=== PATIENT | male | born 1940 | race Two or more races ===

== ENCOUNTER 2016-11-02 18:59 | Inpatient (IN) | payer MEDICAID ==
[~2016-11-02] VITALS: Ht 172.7 cm; Wt 51.7 kg
[2016-11-02] MEDS ORDERED: IV NS 0.9% 1,000 ML ONE ×3 (19:20→22:53)
[2016-11-02] MEDS ORDERED: PANTOPRAZOLE 40 MG VIAL ONE (19:20)
[2016-11-02] MEDS ORDERED: IV SET PRIMARY 1 EA INFUS.SET MC ONE ×2 (19:20→20:25)
--- NOTE | 2016-11-02 19:24 | NUR ---
PT REC'D ON SHILEY 8 TRACH ON [facility] VENT ON NOTED SETTINGS FROM TRANSPORT RT. PT IS AWAKE AND ALERT. TRACH IS MIDLINE AND IN PLACE. VENT IS PLUGGED IN RED OUTLET AND ALARMS ARE SET AND AUDIBLE. ANJELU BAG BEDSIDE. WILL CONTINUE TO MONITOR. Addendum: 11/02/16 at 1926 by DAVID HENNESSY RT Amended: Links added.
[2016-11-02] MEDS ORDERED: PANTOPRAZOLE 40 MG VIAL IV ONE (19:30)
[2016-11-02] MEDS ORDERED: IV NS 0.9% 1,000 ML BAG IV ONE (19:30)
[2016-11-02 19:31] LABS: BASOPHILS % (AUTO) 0.3 % (0.0-2.0); EOSINOPHILS # (AUTO) 0.2 /CMM (0.0-0.7); EOSINOPHILS % (AUTO) 1.3 % (0.0-6.0); HEMATOCRIT 22 % (39-51); HEMOGLOBIN 7.3 g/dL (13.5-17.5); LYMPHOCYTES # (AUTO) 1.6 /CMM (0.8-4.8); LYMPHOCYTES % (AUTO) 9.6 % (20.0-44.0); MEAN CORPUSCULAR HEMOGLOBIN 29 PG (26.0-33.0); MEAN CORPUSCULAR HGB CONC 33 g/dl (31.0-36.0); MEAN CORPUSCULAR VOLUME 87 fL (80-96); MONOCYTES # (AUTO) 0.8 /CMM (0.1-1.30); MONOCYTES % (AUTO) 4.8 % (2.0-12.0); NEUTROPHILS # (AUTO) 13.8 /CMM (1.8-8.9); PLATELET COUNT (AUTO) 582 /CMM (150-450); RDW COEFFICIENT OF VARIATION 15.3 (11.5-15.0); RED BLOOD CELL COUNT(AUTO) 2.56 MIL/uL (4.5-6.0); WHITE BLOOD COUNT (AUTO) 16.4 K/uL (4.3-11.0)
--- NOTE | 2016-11-02 19:47 | NUR ---
SHAI, EMT IS AT THE BEDSIDE FOR EKG.
[2016-11-02 19:49] LABS: INR 1.13 (0.87-1.13); PROTHROMBIN TIME 12.2 SECS (9.5-12.7)
[2016-11-02 19:51] LABS: ALANINE AMINOTRANSFERASE 45 U/L (12-78); ALBUMIN 1.7 g/dL (3.4-5.0); ALKALINE PHOSPHATASE 131 U/L (46-116); ASPARTATE AMINOTRANSFERASE 25 U/L (15-37); BILIRUBIN,DIRECT 0.1 mg/dL (0.0-0.2); BILIRUBIN,TOTAL 0.3 mg/dL (0.2-1.0); CALCIUM, SERUM 8.3 mg/dL (8.5-10.1); CHLORIDE 96 mmol/L (98-107); CREATININE 0.4 mg/dL (0.6-1.3); GLUCOSE 114 mg/dL (74-106); POTASSIUM 4.6 mmol/L (3.5-5.1); SODIUM SERUM 134 mmol/L (136-145); TOTAL PROTEIN, SERUM 6.5 g/dL (6.4-8.2); UREA NITROGEN, BLOOD 17 mg/dL (7-18)
[2016-11-02 19:52] LABS: CARBON DIOXIDE 43 mmol/L (21-32)
[2016-11-02 19:53] LABS: TROPONIN I < 0.017 ng/mL (0.00-0.056)
[2016-11-02 20:13] LABS: APPEARANCE,URINE Slightly Cloudy (CLEAR); BILIRUBIN,URINE Negative (NEGATIVE); BLOOD, URINE Moderate Ery/uL (NEGATIVE); COLOR,URINE Yellow (YELLOW); KETONES,URINE Negative (NEGATIVE); LEUKOCYTE ESTERASE ,URINE Large (NEGATIVE); NITRITE, URINE Positive (NEGATIVE); PROTEIN,URINE 30 mg/dl (NEGATIVE); UGLUCOSE Negative (NEGATIVE)
[2016-11-02 20:23] LABS: ADD URINE CULTURE YES; BACTERIA,URINE Moderate /HPF (None Seen); RBC,URINE 15-25 /HPF (0-2); WBC,URINE TOO NUMEROUS TO COUN /HPF (0-3)
[2016-11-02] MEDS ORDERED: CEFTRIAXONE 1GM BAG (ER ONLY) 50 ML IV ONE (20:25)
[2016-11-02 20:26] LABS: SQUAMOUS EPITHELIAL CELL,UR None Seen /HPF (None Seen)
[2016-11-02] MEDS ORDERED: CEFTRIAXONE 1 G in IV D5W 50 ML IV ONE (20:30)
--- NOTE | 2016-11-02 20:32 | NUR ---
PAGED DANTE MENA
--- NOTE | 2016-11-02 20:40 | NUR ---
ABG DONE. FIO2 DECREASED TO 40%.
--- NOTE | 2016-11-02 20:43 | NUR ---
PT BECAME TACHYPNIC AND RT WAS AT THE BEDSIDE. PT'S FIO2 PLACED AT 100% TO ALLOW PT TO ADJUST.
--- NOTE | 2016-11-02 20:54 | NUR ---
RT IS AT THE BEDSIDE ADJUSTING THE PT'S FIO2.
--- NOTE | 2016-11-02 20:55 | NUR ---
PT AT 50% FIO2.
[2016-11-02 20:57] VITALS: BP 104/67
--- NOTE | 2016-11-02 20:57 | NUR ---
A/C RATE INCREASED TO 14, PER DR. JACOBSEN.
[2016-11-02 20:58] LABS: ABG BASE EXCESS 10.4 mmol/L; ABG OXYGEN SATURATION 91.8 % (92.0-98.5); ABG PCO2 62.9 mmHg (35.0-45.0); ABG PH 7.383 (7.350-7.450); ABG PO2 73.5 mmHg (75.0-100.0); ABG TOTAL HEMOGLOBIN 7.2 G/dL (13.5-18.0); AaDO2 139.4 mmHg; COHb 1.7 % (0.5-1.5); MetHb 0.5 % (0.0-1.5); O2Hb 89.8 % (94.0-97.0); SITE, ABG Right Radial; VENT MODE, BG ac 12 450 40% +5
[2016-11-02] MEDS ORDERED: IV NS 0.9% 500 ML BAG IV ONE (21:00)
--- NOTE | 2016-11-02 21:34 | NUR ---
PICC LINE AREA COVERED WITH 4X4 AND TAPED. NO BLEEDING NOTED.
--- NOTE | 2016-11-02 21:34 | NUR ---
RUE PICC LINE CHECKED BY Daniel MENA DNP. RUE PICC LINE REMOVED BY Daniel MENA DNP.
[2016-11-02 22:30] VITALS: BP 102/61
[2016-11-02] MEDS ORDERED: ONDANSETRON HCL/PF 4 MG/2 ML VIAL IVP PRN (22:30)
[2016-11-02] MEDS ORDERED: ACETAMINOPHEN 325 MG TABLET PO PRN (22:30)
[2016-11-02] MEDS ORDERED: ENOXAPARIN SODIUM 40 MG/0.4 ML DISP.SYRIN SQ SCH (22:30)
[2016-11-02 22:45] VITALS: BP 107/69
[2016-11-02] MEDS ORDERED: IV SET PRIMARY PUMP SET 1 EA INFUS.SET MC ONE (22:53)
[2016-11-02] MEDS: IV NS 0.9% 1,000 ML IV PRN (22:58)
[2016-11-02 23:00] VITALS: BP 98/63
[2016-11-02 23:13] VITALS: BP 98/58
[2016-11-02 23:19] LABS: IRON, SERUM 21 ug/dl (50-175); TOTAL IRON BINDING CAPACITY 130 ug/dl (250-450)
[2016-11-02 23:30] VITALS: BP 106/76
[2016-11-02] MEDS ORDERED: MORPHINE SULFATE INJ 2 MG/ML DISP.SYRIN ONE (23:30)
[2016-11-02] MEDS: MORPHINE SULFATE INJ 2 MG/ML DISP.SYRIN IV PRN (23:34)
[2016-11-02] MEDS ORDERED: LORAZEPAM INJ 2 MG/ML VIAL ONE (23:52)
[2016-11-02] MEDS: LORAZEPAM INJ 2 MG/ML VIAL IV PRN (23:59)
[2016-11-03] VITALS (48 sets, daily range): BP systolic 78–130; BP diastolic 47–93
--- NOTE | 2016-11-03 | NUR ---
BATTERY BUILDER - REC'D PT.TRACHED/[id number],HP=776,50% & PEEP OF 5. DIM/RHONCHI THRU-OUT LOBES. PT.IS NONVERBAL, BUT MOUTHS WORDS. SBP'S ARE LABILE. SR/ST. PEG/CLOGGED. MD AWARE. KOLB CATH TO GRAVITY. PT.HAS STAGE2-3 TO SACRAL AREA. WOUND PICTURE TAKEN & PLACED IN CHART. 2 PIV'S ARE PATENT TO FLUSH. 0.9NS AT 75CC/HR TO RFA-#18G INFUSING WELL. PT. ADM. MORPHINE SULFATE 2 MG SLOW IVP FOR AGITATION, ATIVAN ONE MG IVP FOR ANXIETY, LOVENOX 40MG/SQ ADM. MRSA CX OF BILAT NARES SENT. PT. IS DNR/DNI STATUS. CONT. POC.
[2016-11-03] MEDS ORDERED: IV D5W 250 ML IV ONE (01:28)
[2016-11-03] MEDS ORDERED: VANCOMYCIN 1 GM VIAL ONE (01:28)
[2016-11-03] MEDS ORDERED: IV SET PRIMARY PUMP SET 1 EA INFUS.SET MC ONE (01:29)
[2016-11-03] MEDS ORDERED: VANCOMYCIN 1 GM in IV D5W 250 ML IV ONE (01:30)
[2016-11-03] MEDS ORDERED: IV NS 0.9% 500 ML IV ONE ×2 (02:28→03:00)
[2016-11-03] MEDS ORDERED: MEROPENEM 1 G VIAL IV ONE (02:44)
[2016-11-03] MEDS ORDERED: NOREPINEPHRINE 8 MG in IV D5W 500 ML IV PRN (03:30)
--- NOTE | 2016-11-03 03:35 | NUR ---
RECEIVER STOCKER - PT'S PEG FLUSHES W/O INCIDENCE. 100CC H20 FLUSHED W/O RESISTANCE. CONT.POC.
[2016-11-03] MEDS ORDERED: IV NS 0.9% 100 ML IV ONE (04:50)
[2016-11-03] MEDS ORDERED: MEROPENEM 1 G in IV NS 0.9% 100 ML IV SCH (05:00)
[2016-11-03 05:54] LABS: ALBUMIN 1.6 g/dL (3.4-5.0); BILIRUBIN,TOTAL 0.3 mg/dL (0.2-1.0); CALCIUM, SERUM 7.5 mg/dL (8.5-10.1); CREATININE 0.3 mg/dL (0.6-1.3); MAGNESIUM 1.9 mg/dL (1.8-2.4); PHOSPHORUS 2.5 mg/dL (2.5-4.9); POTASSIUM 4.2 mmol/L (3.5-5.1); TOTAL PROTEIN, SERUM 6.1 g/dL (6.4-8.2)
[2016-11-03 05:55] LABS: THYROID STIMULATING HORMONE 1.73 uIU/mL (0.358-3.74)
[2016-11-03 06:02] LABS: EOSINOPHILS % (AUTO) 0.1 % (0.0-6.0); LYMPHOCYTES % (AUTO) 6.2 % (20.0-44.0); MEAN CORPUSCULAR HEMOGLOBIN 29 PG (26.0-33.0); MEAN CORPUSCULAR HGB CONC 33 g/dl (31.0-36.0); MEAN CORPUSCULAR VOLUME 87 fL (80-96); MONOCYTES # (AUTO) 0.7 /CMM (0.1-1.30); MONOCYTES % (AUTO) 4.3 % (2.0-12.0); NEUTROPHILS # (AUTO) 14.7 /CMM (1.8-8.9); NEUTROPHILS % (AUTO) 89.4 % (43.0-81.0); PLATELET COUNT (AUTO) 493 /CMM (150-450); RDW COEFFICIENT OF VARIATION 16.2 (11.5-15.0); RED BLOOD CELL COUNT(AUTO) 2.28 MIL/uL (4.5-6.0); WHITE BLOOD COUNT (AUTO) 16.5 K/uL (4.3-11.0)
[2016-11-03 06:05] LABS: HEMATOCRIT 20 % (39-51); HEMOGLOBIN 6.5 g/dL (13.5-17.5)
[2016-11-03 06:36] LABS: BAND % (MANUAL) 9 % (0.0-5.0); LYMPHOCYTES % (MANUAL) 7 % (16-48); METAMYELOCYTES % 1 % (0-0); MONOCYTES % (MANUAL) 3 % (0-11.0); NEUTROPHILS % (MANUAL) 80 (42-76); PLATELET ESTIMATE INCREASED
[2016-11-03 06:37] LABS: ANISOCYTOSIS 1+; HYPOCHROMASIA 2+
--- NOTE | 2016-11-03 06:45 | NUR ---
ASSISTANT PRODUCT MANAGER - LABS HAD TO BE REDRAWN PERIPHERALLY. H/H=6.5/20. DANTE MENA NOTIFIED. ORDERS REC'D. 2 UNITS OF PRBC'S ARE TO BE INFUSED. PT.'S DIAPER/SIDDHARTH CARE ADM. BY YANICK BUCHANAN-VÍCTOR & STUDENT RN. VERBAL REPORT ENDORSED TO VÍCTOR MCDONALD RN
--- NOTE | 2016-11-03 07:40 | NUR ---
RT PT RECEIVED TRACHED WITH A SHILEY 8 ON THE VENT WITH NOTED SETTINGS. PT IS AWAKE AND ALERT. VENT ALARMS ARE SET AND AUDIBLE WITH BVM BY BEDSIDE. WORKERS COMPENSATION CLAIMS SPECIALIST CUFF PRESSURE NOTED. VENT IS PLUGGED INTO RED OUTLET. NO RESPIRATORY DISTRESS NOTED AT THIS TIME, WILL CONTINUE TO MONITOR. Addendum: 11/03/16 at 1752 by JAMIE CORREA RT Amended: Links added.
--- NOTE | 2016-11-03 07:45 | NUR ---
ICU/RN - Initial Notes Received pt in bed, chronic trach to mechanical vent with settings as ordered. Pt nonverbal, able to mouth words. Denies pain or discomfort. On tele reading ST 117. GT kept clamped, NPO as ordered. Montoya catheter intact draining urine to gravity. IVF infusing well. Pt suctioned and repositioned for comfort. Safety and comfort measures in place. Bowel movement noted, stool collected and sent to lab. Will continue to monitor pt closely.
[2016-11-03] MEDS ORDERED: FEE PK DOSING 1 MIN EA MC ONE (08:17)
[2016-11-03] MEDS ORDERED: ASCO500S2 GT (08:26)
[2016-11-03] MEDS ORDERED: ALBU2.5V13 IH ×2 (08:26)
[2016-11-03] MEDS ORDERED: LORA0.5T GT (08:26)
[2016-11-03] MEDS ORDERED: HYDR-3326 GT (08:26)
[2016-11-03] MEDS ORDERED: ZINC220C8 GT (08:26)
[2016-11-03] MEDS ORDERED: FERR300L GT (08:26)
[2016-11-03] MEDS ORDERED: MIDO10TA GT (08:26)
[2016-11-03] MEDS ORDERED: SACC250C6 GT (08:26)
[2016-11-03] MEDS ORDERED: AMIN30LI4 GT (08:26)
[2016-11-03] MEDS ORDERED: NUT.237L31 GT (08:26)
[2016-11-03] MEDS ORDERED: MULT-24 GT (08:26)
[2016-11-03] MEDS ORDERED: CHLO15MO2 MM (08:26)
[2016-11-03] MEDS ORDERED: FAMO20TA8 GT (08:26)
[2016-11-03] MEDS ORDERED: DOCU50LI GT (08:26)
[2016-11-03] MEDS ORDERED: GABA-534 GT (08:26)
[2016-11-03] MEDS ORDERED: ACET650S26 GT (08:26)
[2016-11-03] MEDS ORDERED: BISA10SU8 RC (08:26)
[2016-11-03] MEDS ORDERED: CHOL100044 GT (08:26)
[2016-11-03] MEDS ORDERED: MAGN400O6 GT (08:26)
[2016-11-03] MEDS ORDERED: ENOX40DI SQ (08:26)
[2016-11-03] MEDS ORDERED: FLUD0.1T3 GT (08:26)
[2016-11-03] MEDS ORDERED: NA P133E RC (08:26)
[2016-11-03] MEDS ORDERED: ACETAMINOPHEN 650 MG/SUPP.RECT RC PRN (08:30)
[2016-11-03] MEDS: ACETAMINOPHEN 650 MG/20.3 ML UDC GT PRN (09:21)
--- NOTE | 2016-11-03 09:30 | NUR ---
ICU/RN - Notes Pt noted with temperature 101.5 F. Administered Tylenol 650mg via GT. Cooling measures in place.
[2016-11-03] MEDS ORDERED: BLOOD IV SET 1 EA INFUS.SET MC ONE ×2 (10:37→13:56)
[2016-11-03] MEDS ORDERED: IV NS 0.9% 250 ML IV ONE ×2 (10:37→13:56)
--- NOTE | 2016-11-03 10:45 | NUR ---
ICU/RN - Notes Temperature rechecked 99.2 F. Will begin PRBC transfusion.
--- NOTE | 2016-11-03 11:30 | NUR ---
ICU/RN - Notes PRBC transfusion in process. No s/s of adverse reactions noted. Vital signs stable.
--- NOTE | 2016-11-03 11:45 | NUR ---
ICU/RN - Notes Bilateral soft wrist restraints removed at this time as pt is calm and cooperative.
[2016-11-03] MEDS ORDERED: SECONDARY IV SET 1 EA INFUS.SET MC ONE (12:38)
[2016-11-03] MEDS: IV NS 0.9% 1,000 ML IV PRN (12:42)
[2016-11-03] MEDS: VANCOMYCIN 500 MG in IV D5W 100 ML IV SCH (13:49)
[2016-11-03 14:16] LABS: THYROID STIMULATING HORMONE 1.711 uIU/mL (0.358-3.74)
[2016-11-03] MEDS: ALBUTEROL HALF STRENGTH 1.25 MG/3 ML VIAL.NEB NEB SCH ×2 (15:08→19:39)
[2016-11-03] MEDS: IPRATROPIUM NEB FS 0.5 MG/2.5 ML AMPUL.NEB NEB SCH ×2 (15:08→19:39)
[2016-11-03] MEDS: MEROPENEM 1 G in IV NS 0.9% 100 ML IV SCH (16:12)
[2016-11-03] MEDS: MORPHINE SULFATE INJ 2 MG/ML DISP.SYRIN IV PRN ×2 (18:21→22:52)
--- NOTE | 2016-11-03 18:24 | NUR ---
ICU/RN - Notes Pt complains of abdominal pain, rubbing site, tachycardic HR 112. Administered Morphine 2mg IVP as ordered for PRN pain. Comfort measures rendered. Will reassess pain accordingly.
[2016-11-03 19:21] LABS: BASOPHILS % (AUTO) 0.2 % (0.0-2.0); EOSINOPHILS # (AUTO) 0.1 /CMM (0.0-0.7); EOSINOPHILS % (AUTO) 0.4 % (0.0-6.0); HEMATOCRIT 28 % (39-51); HEMOGLOBIN 9.4 g/dL (13.5-17.5); LYMPHOCYTES % (AUTO) 6.1 % (20.0-44.0); MEAN CORPUSCULAR HEMOGLOBIN 29 PG (26.0-33.0); MEAN CORPUSCULAR HGB CONC 34 g/dl (31.0-36.0); MEAN CORPUSCULAR VOLUME 87 fL (80-96); MONOCYTES # (AUTO) 0.9 /CMM (0.1-1.30); MONOCYTES % (AUTO) 5.3 % (2.0-12.0); NEUTROPHILS # (AUTO) 14.4 /CMM (1.8-8.9); PLATELET COUNT (AUTO) 442 /CMM (150-450); RDW COEFFICIENT OF VARIATION 14.7 (11.5-15.0); RED BLOOD CELL COUNT(AUTO) 3.18 MIL/uL (4.5-6.0); WHITE BLOOD COUNT (AUTO) 16.4 K/uL (4.3-11.0)
--- NOTE | 2016-11-03 19:30 | NUR ---
Received patient awake alert and oriented x 2.Anxious and hyperventilating RR 38-40. Mouth words wants to go home.Suctioned small amount pale yellow thick secretions. Chronic VDRF with trach to vent on prescribed settings well tolerated.Emotional support rendered.Reassured.NPO status maintained.GT clamped.FC to gravity draining liza urine. IVF infusing well.Turned and repositioned to comfort with extremities offloaded.
--- NOTE | 2016-11-03 20:11 | NUR ---
RT NOTE PT RECEIVED MECHANICALLY VENTILATED VIA SHILEY 8 CUFFED TRACH TUBE. VENT SETTINGS PRESCRIBED. ALARMS SET PER PROTOCOL AND AUDIBLE. VENT PLUGGED IN TO RED OUTLET. AMBU BAG AT BEDSIDE. PT AWAKE AND ALERT. CUFF INFLATED. FINANCIAL SALES CONSULTANT PERFORMED. BILATERAL CHEST RISE NOTED. NO DISTRESS NOTED, WILL CONTINUE TO MONITOR. Addendum: 11/03/16 at 2015 by DULCE ENGLE RT Amended: Links added.
[2016-11-03] MEDS: LORAZEPAM INJ 2 MG/ML VIAL IV PRN (20:37)
--- NOTE | 2016-11-03 21:00 | NUR ---
Patient resting comfortably at this time.Was medicated with ativan for agitation.VS stable.
[2016-11-04] VITALS (45 sets, daily range): BP systolic 101–136; BP diastolic 41–86
--- NOTE | 2016-11-04 | NUR ---
Patient incontinent of loose greenish stool.Perineal care done.Bed bath done.Complete linens changed.Turned and repositioned.VS table.Denies pain.
[2016-11-04] MEDS: ALBUTEROL HALF STRENGTH 1.25 MG/3 ML VIAL.NEB NEB SCH ×4 (01:16→19:44)
[2016-11-04] MEDS: IPRATROPIUM NEB FS 0.5 MG/2.5 ML AMPUL.NEB NEB SCH ×4 (01:16→19:44)
[2016-11-04] MEDS: VANCOMYCIN 500 MG in IV D5W 100 ML IV SCH (02:10)
[2016-11-04] MEDS: MEROPENEM 1 G in IV NS 0.9% 100 ML IV SCH ×2 (04:39→16:43)
[2016-11-04] MEDS: IV NS 0.9% 1,000 ML IV PRN ×2 (04:50→17:40)
[2016-11-04 04:51] LABS: CREATININE 0.2 mg/dL (0.6-1.3); POTASSIUM 3.2 mmol/L (3.5-5.1)
--- NOTE | 2016-11-04 06:30 | NUR ---
Patient resting,vs stable.SR per monitor.No complaints of pain noted.All due meds administered. IVF infusing well.Turned and repositioned.
--- NOTE | 2016-11-04 07:30 | NUR ---
RN INITIAL NOTES PT IN BED, A/O X2, NONVERBAL, HOB ELEVATED 35 DEGREES, ON TELE MONITOR WITH SR 87. PT HAS SHILEY #8, AC 14, TV 450, FIO2 50%, PEEP 5, TOLERATING WELL. GT IS CLAMPED, CDI. KOLB CATH DRAINING WELL, CLEAR YELLOW URINE. SKIN: STAGE 2 SACRAL, MID BACK SCRATCHES, ALL WOUND ORDERS CARRIED OUT. IV ON LFA 18G, RFA 18G, RUNNING NS @ 75 CC/HR, TOLERATING WELL, NO SIGNS OF INFECTION/INFILTRATION NOTED. CALL LIGHT WITHIN EASY REACH, SAFETY MEASURES MAINTAINED, WILL CONTINUE TO MONITOR AND FOLLOW MD ORDERS. PT OVERALL IN STABLE CONDITION.
[2016-11-04] MEDS ORDERED: POTASSIUM CHLORIDE 20 MEQ POWDER PACKET NG SCH (12:30)
[2016-11-04] MEDS: LORAZEPAM INJ 2 MG/ML VIAL IV PRN ×2 (13:36→18:17)
[2016-11-04] MEDS: ACETAMINOPHEN 650 MG/20.3 ML UDC GT PRN (13:36)
[2016-11-04] MEDS: MORPHINE SULFATE INJ 2 MG/ML DISP.SYRIN IV PRN (14:29)
[2016-11-04] MEDS: VANCOMYCIN HCL 0.75 GM in IV D5W 250 ML IV SCH (15:06)
--- NOTE | 2016-11-04 18:20 | NUR ---
ICU/RN - Notes Pt noted to be tachypneic RR 40's, and tachycardic HR 107, appears to be anxious. Administered Ativan 1mg IVP as ordered. Will continue to monitor.
--- NOTE | 2016-11-04 19:21 | NUR ---
RN CLOSING NOTES PT IN STABLE CONDITION, ALL MD ORDERS CARRIED OUT, IV'S CDI, NO SIGNS OF INFECTION/INFILTRATION, TOLERATING MECH VENT WELL, KOLB CATH CDI, GT CDI, CLAMPED, BSWR INTACT. CALL LIGHT WITHIN EASY REACH, SAFETY MEASURES MAINTAINED, REPORT GIVEN TO NIGHT NURSE FOR MADI. PT IN OVERALL STABLE CONDITION.
--- NOTE | 2016-11-04 19:56 | NUR ---
WAGON PERSON NOTES RECEIVED PT IN BED, CONFUSED. NON VERBAL. TELE READS SR AT 98 BPM. ON VENT VIA TRACH AT ORDERED SETTINGS CARTER WELL. GT TUBE CLAMPED, NO RESIDUAL. KOLB CATH IN PLACE, DRAINING WELL. LFA 18G AND RFA 18 IVs, RUNNING NS AT 75 ML/HR. ON BILATERAL SWR FOR PATIENT SAFETY. DVT PUMPS IN PLACE. SIDE RAILS X4. HOB ELEVATED. NO S/S OF PAIN. ORAL/TRACH SUCTIONING RENDERED. TURNED AND REPOSITIONED.
--- NOTE | 2016-11-04 20:17 | NUR ---
RT NOTE PT RECEIVED MECHANICALLY VENTILATED VIA SHILEY 8 CUFFED TRACH TUBE. VENT SETTINGS PRESCRIBED. ALARMS SET PER PROTOCOL AND AUDIBLE. AMBU BAG AT BEDSIDE. VENT PLUGGED IN TO RED OUTLET. PT AWAKE AND ALERT APPEARS COMFORTABLE. NO DISTRESS NOTED WILL CONTINUE TO MONITOR. Addendum: 11/04/16 at 2019 by DULCE ENGLE RT Amended: Links added.
[2016-11-05] VITALS (9 sets, daily range): BP systolic 109–123; BP diastolic 64–76
--- NOTE | 2016-11-05 01:00 | NUR ---
ADVANCED PRACTICE PSYCHIATRIC NURSE NOTES PATIENT TRANSFERRED TO TEA ROOM 102, PATIENT ON MONITOR THROUGHOUT TRANSPORT WITH STABLE VS. BEDSIDE REPORT GIVEN TO TEA RN. ALL BELONGINGS AND MEDS TRANSPORTED WITH PATIENT.
[2016-11-05] MEDS: IPRATROPIUM NEB FS 0.5 MG/2.5 ML AMPUL.NEB NEB SCH ×5 (01:04→19:45)
[2016-11-05] MEDS: ALBUTEROL HALF STRENGTH 1.25 MG/3 ML VIAL.NEB NEB SCH ×5 (01:05→19:45)
--- NOTE | 2016-11-05 01:21 | NUR ---
SEX OFFENDER TREATMENT PROFESSIONAL NOTE; RECEIVED PT FROM ICU , ON [facility] VENT , VENT SETTING -Sh#8 , AC 14, TV-450, FIO2-45%,PEEP-5 ,SR HR 98 ON TELE MONITOR, LFA#18 .RFA#18 INTACT AND PATENT , F/C INTACT AND DRAINING YELLOWISH URINE, G TUBE INTACT AND CLAMPED, B/L SWR INTACT , SKIN ASSESSED UNDERNEATH. BED IN THE LOWEST/LOCKED POSITION, SAFETY MEASURES APPLIED, WILL CONTINUE TO MONITOR .
[2016-11-05] MEDS: LORAZEPAM INJ 2 MG/ML VIAL IV PRN ×3 (01:49→22:18)
[2016-11-05] MEDS: VANCOMYCIN HCL 0.75 GM in IV D5W 250 ML IV SCH (02:00)
[2016-11-05] MEDS: MEROPENEM 1 G in IV NS 0.9% 100 ML IV SCH ×2 (05:42→17:50)
[2016-11-05] MEDS: IV NS 0.9% 1,000 ML IV PRN (05:48)
[2016-11-05 06:59] LABS: BASOPHILS % (AUTO) 0.2 % (0.0-2.0); HEMATOCRIT 26 % (39-51); HEMOGLOBIN 8.9 g/dL (13.5-17.5); LYMPHOCYTES # (AUTO) 0.8 /CMM (0.8-4.8); LYMPHOCYTES % (AUTO) 7.2 % (20.0-44.0); MEAN CORPUSCULAR HEMOGLOBIN 32 PG (26.0-33.0); MEAN CORPUSCULAR HGB CONC 34 g/dl (31.0-36.0); MEAN CORPUSCULAR VOLUME 93 fL (80-96); MONOCYTES # (AUTO) 0.6 /CMM (0.1-1.30); MONOCYTES % (AUTO) 4.9 % (2.0-12.0); NEUTROPHILS # (AUTO) 10.2 /CMM (1.8-8.9); NEUTROPHILS % (AUTO) 87.7 % (43.0-81.0); PLATELET COUNT (AUTO) 410 /CMM (150-450); RDW COEFFICIENT OF VARIATION 15.5 (11.5-15.0); RED BLOOD CELL COUNT(AUTO) 2.82 MIL/uL (4.5-6.0); WHITE BLOOD COUNT (AUTO) 11.7 K/uL (4.3-11.0)
--- NOTE | 2016-11-05 07:01 | NUR ---
RN EOS NOTE; PT REMAINED STABLE DURING THE SHIFT, NO ANY DISTRESS NOTED DURING THE SHIFT. IV SITE INTACT AND PATENT, F/C INTACT AND DRAINING YELLOWISH URINE . TOTAL CARE RENDERED , REPOSITIONED Q2H , KEPT CLEAN AND DRY , WILL ENDORSE TO NEXT SHIFT FOR CONTINUITY OF CARE.
[2016-11-05 07:14] LABS: CALCIUM, SERUM 7.9 mg/dL (8.5-10.1); CREATININE 0.2 mg/dL (0.6-1.3); POTASSIUM 3.5 mmol/L (3.5-5.1)
--- NOTE | 2016-11-05 07:15 | NUR ---
WIRE COINER INITIAL NOTES RECEIVED REPORT AND PT FROM PM NURSE, PT ON [facility] VENT SETTINGS ORDERED BY SAT ABOVE 97%, KOLB CATH DRAINING URINE VIA GRAVITY, ON TELE MON SR 74, A&O X2 NO SOB OR ACUTE DISTRESS, LT FA 18 G IV INTACT AND RT FA 18 G NS IV INTACT AND PATENT NO S/S OF INFILTRATION NOTED, GTUBE INTACT AT THIS TIME CLAMPED. ALL NEEDS MET, ALL SAFETY MEASURES INITIATED, SIDE RAILS X2, BED LOW AND LOCKED, CALL LIGHT WITHIN REACH, WILL CONTINUE TO MONITOR.
--- NOTE | 2016-11-05 07:28 | NUR ---
PT RECEIVED TRACHED ON MECHANICAL VENT W/ SETTINGS PER MD. VENT IN RED OUTLET, AMBUBAG AT BEDSIDE, VENT ALARMS CHECKED AND AUDIBLE. PT SX'ED AND LAVAGED PRN. PLAN IS TO CONTINUE CARE W/ CURRENT MD ORDERS AND MONITOR FOR CHANGES. Addendum: 11/05/16 at 0944 by SALINAS BELLA RT Amended: Links added.
[2016-11-05 10:20] LABS: ABG BASE EXCESS 9.3 mmol/L; ABG OXYGEN SATURATION 91.3 % (92.0-98.5); ABG PCO2 46.8 mmHg (35.0-45.0); ABG PH 7.479 (7.350-7.450); ABG PO2 60.7 mmHg (75.0-100.0); ABG TOTAL HEMOGLOBIN 11.2 G/dL (13.5-18.0); AaDO2 206.9 mmHg; COHb 1.7 % (0.5-1.5); MetHb 0.7 % (0.0-1.5); O2Hb 89.1 % (94.0-97.0); PEEP,BG 5 cm H2O; SITE, ABG Right Radial; VENT MODE, BG AC 14 450 +5; VT, ABG 450 mL
--- NOTE | 2016-11-05 10:23 | NUR ---
ABG DONE PER ORDER. RESULT REPORTED TO DR. BHATTI. NO VENT CHANGES, PER DR. BHATIT.
--- NOTE | 2016-11-05 13:12 | NUR ---
WOUND CARE CONSULT: PT PRESENTS ON VENTILATOR WITH SACRAL ULCERS AND FRAGILE SCAR TO MIDBACK, PRESENT ON ADMISSION. EDEMA NOTED TO LOWER EXTREMITIES. PT IS INCONTINENT OF STOOL. PT ON FIRST STEP MATTRESS. ALL SKIN AND WOUND RECOMMENDATIONS DISCUSSED WITH NURSING STAFF. RECOMMEND SURGICAL CONSULT. MD IN AGREEMENT WITH PLAN OF CARE. Addendum: 11/05/16 at 1314 by CLEVELAND CASTAÑEDA WNDNU Amended: Links added.
[2016-11-05] MEDS ORDERED: HYDROGEL DRESSING 90 GM TUBE TP PRN (13:30)
[2016-11-05] MEDS: HYDROGEL DRESSING 90 GM TUBE TP SCH (15:00)
[2016-11-05] MEDS: DAKINS QUARTER STRENGTH (0.125%) 480 ML BOTTLE TOP SCH (15:00)
[2016-11-05] MEDS: VANCOMYCIN 1 GM in IV D5W 250 ML IV SCH (16:44)
--- NOTE | 2016-11-05 18:47 | NUR ---
ENGINEERING DIRECTOR ENDING NOTES PT STABLE, RESP 35, ATIVAN GIVEN TODAY, ALL NEEDS MET, ALL DUE MEDS GIVEN, ABG DONE TODAY, RESPIRATORY DR BHATTI SAID OK AND ONLY MEDICATE FOR ANXIETY. WILL ENDORSE TO PM NURSE.
--- NOTE | 2016-11-05 19:20 | NUR ---
ENGINEERING INSTRUCTOR INITIAL NOTES RECEIVED PT IN NO ACUTE DISTRESS IN BED. PT ON [facility] VENT SETTINGS ORDERED BY SAT ABOVE 99%, KOLB CATH DRAINING URINE VIA GRAVITY, ON TELE MON ST 118, A&O X2 NO SOB OR ACUTE DISTRESS, LT FA 18 G IV INTACT AND RT FA 18 G NS IV INTACT AND PATENT NO S/S OF INFILTRATION NOTED, GTUBE INTACT AT THIS TIME CLAMPED. ALL NEEDS MET, ALL SAFETY MEASURES INITIATED, SIDE RAILS X2, BED LOW AND LOCKED, CALL LIGHT WITHIN REACH, WILL CONTINUE TO MONITOR.
[2016-11-06] VITALS (7 sets, daily range): BP systolic 97–144; BP diastolic 60–89
--- NOTE | 2016-11-06 | NUR ---
RN NOTE PT WAS TACHYPNEIC @ 40 BPM WITH O2 SAT @ 94% ON MECHANICAL VENTILATIONS. NOTIFIED RT OR THE INCREASED RESPIRATIONS. PT SUCTIONED AND PT GIVEN ATIVAN DUE TO POSSIBLE ANXIETY WITH RESPIRATIONS DECREASING TO 30BPM. AFTER NO FURTHER DECREASE PT GIVEN MORPHINE AND PT RESPIRATIONS DECREASED TO 25BPM. NOTIFIED CHARGE NURSE AND WILL CONTINUE TO MONITOR PT FOR ANY RESPIRATORY DISTRESS. WILL ENDORSE TO AM RN FOR CONTINUITY OF CARE.
[2016-11-06] MEDS: ALBUTEROL HALF STRENGTH 1.25 MG/3 ML VIAL.NEB NEB SCH ×4 (00:41→20:22)
[2016-11-06] MEDS: IPRATROPIUM NEB FS 0.5 MG/2.5 ML AMPUL.NEB NEB SCH ×4 (00:41→20:22)
[2016-11-06] MEDS: VANCOMYCIN 1 GM in IV D5W 250 ML IV SCH ×2 (04:28→18:32)
[2016-11-06] MEDS: MEROPENEM 1 G in IV NS 0.9% 100 ML IV SCH ×2 (06:00→17:11)
[2016-11-06 06:11] LABS: *SPE A/G RATIO 0.6 (0.7-1.7); *SPE ALBUMIN 2.2 g/dL (2.9-4.4); *SPE ALPHA-1-GLOBULIN 0.5 g/dL (0.0-0.4); *SPE ALPHA-2-GLOBULIN 0.9 g/dL (0.4-1.0); *SPE BETA GLOBULIN 0.8 g/dL (0.7-1.3); *SPE GLOBULIN, TOTAL 3.9 g/dL (2.2-3.9); *SPE M-SPIKE 0.2 g/dL (Not Observed); *SPE PROTEIN TOTAL 6.1 g/dL (6.0-8.5); *SPEGAMMA GLOBULIN 1.8 g/dL (0.4-1.8)
--- NOTE | 2016-11-06 06:47 | NUR ---
PROJECT LANDSCAPE ARCHITECT INITIAL NOTES RECEIVED PT IN NO ACUTE DISTRESS IN BED. PT ON [facility] VENT SETTINGS ORDERED BY SAT ABOVE 99%, KOLB CATH DRAINING URINE VIA GRAVITY, ON TELE MON ST 118, A&O X2 NO SOB OR ACUTE DISTRESS, LT FA 18 G IV INTACT AND RT FA 18 G NS IV INTACT AND PATENT NO S/S OF INFILTRATION NOTED, GTUBE INTACT AT THIS TIME CLAMPED. ALL NEEDS MET, ALL SAFETY MEASURES INITIATED, SIDE RAILS X2, BED LOW AND LOCKED, CALL LIGHT WITHIN REACH, WILL CONTINUE TO MONITOR. Addendum: 11/06/16 at 0649 by JOE ENRIQUE RN INPUT WRONG TIME. SEE NOTE FOR 1919
--- NOTE | 2016-11-06 06:48 | NUR ---
RN CLOSING NOTE PT REMAINS IN NO ACUTE DISTRESS IN BED. PT DID NOT HAVE ANY SIGNIFICANT CHANGE IN CONDITION DURING SHIFT. ALL NEEDS MET, ALL ORDERS CARRIED OUT.WILL ENDORSE TO AM RN FOR CONTINUITY OF CARE.
[2016-11-06 06:55] LABS: BASOPHILS % (AUTO) 0.2 % (0.0-2.0); EOSINOPHILS % (AUTO) 0.3 % (0.0-6.0); HEMATOCRIT 28 % (39-51); HEMOGLOBIN 9.7 g/dL (13.5-17.5); LYMPHOCYTES # (AUTO) 1.1 /CMM (0.8-4.8); LYMPHOCYTES % (AUTO) 8.7 % (20.0-44.0); MEAN CORPUSCULAR HEMOGLOBIN 31 PG (26.0-33.0); MEAN CORPUSCULAR HGB CONC 34 g/dl (31.0-36.0); MEAN CORPUSCULAR VOLUME 91 fL (80-96); MONOCYTES # (AUTO) 0.7 /CMM (0.1-1.30); MONOCYTES % (AUTO) 5.8 % (2.0-12.0); NEUTROPHILS # (AUTO) 10.6 /CMM (1.8-8.9); PLATELET COUNT (AUTO) 437 /CMM (150-450); RDW COEFFICIENT OF VARIATION 15.4 (11.5-15.0); RED BLOOD CELL COUNT(AUTO) 3.13 MIL/uL (4.5-6.0); WHITE BLOOD COUNT (AUTO) 12.5 K/uL (4.3-11.0)
[2016-11-06 07:06] LABS: CALCIUM, SERUM 7.9 mg/dL (8.5-10.1); CREATININE 0.3 mg/dL (0.6-1.3); POTASSIUM 2.9 mmol/L (3.5-5.1)
--- NOTE | 2016-11-06 07:30 | NUR ---
RN INITIAL NOTES: Received patient on bed during rounds, awake, opens eyes spontaneously, alert x1 with confusion, non-verbal but able to nod head, not able to make needs known call lights placed within reached, needs anticipated and attended. Patient appears restless and agitated, on bilateral soft wrist restrainer, checked circulation as per protocol. With vent and Tracheostomy with the ff settings AC14 TV450 FIO2 45% saturating at 96%. With LFA G18 and RFA G18 IV PLUG, flushed with NS and patent with NS IVF at 75cc/hr infusing well. With Gtube in placed with no residual. With Foleycatheter in placed, draining well, no Hematuria, no sediments, no clots seen, no odor noted. NO SOB, No LOC, respirations are even and unlabored, no acute distress noted. Kept clean and dry. Provided safety and comfort measures. Bed low and locked position, fall precaution observed. Will turn and reposition, offload heels as per protocol. HOB elevated, aspiration precaution observed. To continue to monitor accordingly.
[2016-11-06 08:26] LABS: VIT D, 25-HYDROXY 39.4 ng/mL (30.0-100.0)
[2016-11-06] MEDS: DAKINS QUARTER STRENGTH (0.125%) 480 ML BOTTLE TOP SCH (09:11)
[2016-11-06] MEDS: HYDROGEL DRESSING 90 GM TUBE TP SCH (09:12)
[2016-11-06] MEDS: Z GUARD REMEDY 2 OZ OINT TP PRN (09:12)
[2016-11-06] MEDS: LORAZEPAM INJ 2 MG/ML VIAL IV PRN ×2 (09:36→16:23)
[2016-11-06] MEDS ORDERED: SECONDARY IV SET 1 EA INFUS.SET MC ONE (10:56)
[2016-11-06] MEDS: POTASSIUM CL. PREMIX PERIPHER. 50 ML IV SCH ×6 (11:04→17:57)
--- NOTE | 2016-11-06 11:37 | NUR ---
RN NOTES; Assessed and examine patient, sleeping but able to arouse easily, no signs and symptoms of respiratory distress noted. O2 saturation of 96%, HR 88bpm and RR21, no restlessness and agitation noted.
[2016-11-06 11:42] LABS: CARCINOEMBRYONIC AG (CEA) 4.5 ng/mL (0.0-4.7)
[2016-11-06 14:16] LABS: *SPE A/G RATIO 0.5 (0.7-1.7); *SPE ALBUMIN 1.9 g/dL (2.9-4.4); *SPE ALPHA-1-GLOBULIN 0.4 g/dL (0.0-0.4); *SPE ALPHA-2-GLOBULIN 0.9 g/dL (0.4-1.0); *SPE BETA GLOBULIN 0.7 g/dL (0.7-1.3); *SPE GLOBULIN, TOTAL 3.6 g/dL (2.2-3.9); *SPE M-SPIKE 0.2 g/dL (Not Observed); *SPE PROTEIN TOTAL 5.5 g/dL (6.0-8.5); *SPEGAMMA GLOBULIN 1.6 g/dL (0.4-1.8)
--- NOTE | 2016-11-06 15:19 | NUR ---
RN NOTES: Seen and examined by Dr. Davis today with NNO. As per MD if no procedure today may feed patient, seen Supervisor Pastry notes and recommended for Novasourdipak at 60cc/hr, noted by Dr. Davis and ok to start. As per Pedro, Dr. Ryan Atwood will see patient for consult and possible Debridment. Addendum: 11/06/16 at 1535 by CAITIE KURTZ RN INITIATE TUBE FEEDING OF NUTREN PULMONARY@60ML/HR X 24 as recommended by dietitian, not Novasource, noted and carried out.
[2016-11-06] MEDS: ACETAMINOPHEN 650 MG/20.3 ML UDC GT PRN (16:23)
[2016-11-06] MEDS: NUTREN PULMONARY 1,000 ML BAG GT PRN (17:11)
[2016-11-06] MEDS: MORPHINE SULFATE INJ 2 MG/ML DISP.SYRIN IV PRN ×2 (18:08→23:10)
--- NOTE | 2016-11-06 18:45 | NUR ---
DEALERSHIP MANAGER INITIAL NOTE RECEIVED REPORT FROM RITCHIE BUCHANAN. PT IN BED. A/O X1. CHRONIC VENT TRACH, TOLERATING CURRENT VENT SETTINGS. PT BREATHS VERY FAST, ATIVAN AND MORPHINE ARE EFFECTIVE IN CALMING RR. LUNG SOUNDS RHONCHI. BOWEL SOUNDS PRESENT. GT PATENT AND INTACT, FEEDING CURRENTLY AT 40CC/HR, GOAL IS 60CC/HR. KOLB INTACT AND DRAINING URINE. IV PATENT AND INTACT. PULSES PRESENT IN ALL EXTREMITIES. BED IN LOW LOCKED POSITION. WILL CONTINUE TO MONITOR. RESTRAINTS IN PLACE, PULSES INTACT. REPOSITIONED FOR COMFORT.
--- NOTE | 2016-11-06 18:53 | NUR ---
RN NOTES: Patient remain stable within shift, periods of tachycardia and tachypnea noted and given Ativan and Morphine as ordered and patient becomes calm and rested. Nutren Pumonary started at 4cc/hr and increments of 10cc/hr to reach goal of 60cc/hr, HOB elevated, gtube feeding tolerating well, no residual noted, aspiration precaution observed. Labs in am. Endorsed to CHANEL Whyte for continuity of care.
[2016-11-07] VITALS: BP_SYST 106; BP_SYST 124; BP_DIAS 61; BP_DIAS 76
[2016-11-07] MEDS: LORAZEPAM INJ 2 MG/ML VIAL IV PRN ×3 (01:36→21:22)
[2016-11-07] MEDS ORDERED: SECONDARY IV SET 1 EA INFUS.SET MC ONE (01:39)
[2016-11-07] MEDS ORDERED: IV SET PRIMARY PUMP SET 1 EA INFUS.SET MC ONE (01:39)
[2016-11-07] MEDS ORDERED: IV NS 0.9% 250 ML IV ONE (01:39)
[2016-11-07] MEDS: IPRATROPIUM NEB FS 0.5 MG/2.5 ML AMPUL.NEB NEB SCH ×4 (01:48→20:27)
[2016-11-07] MEDS: ALBUTEROL HALF STRENGTH 1.25 MG/3 ML VIAL.NEB NEB SCH ×4 (01:48→20:27)
[2016-11-07 04:00] VITALS: BP 109/71
[2016-11-07] MEDS: VANCOMYCIN 1 GM in IV D5W 250 ML IV SCH ×2 (04:02→15:19)
[2016-11-07] MEDS: MEROPENEM 1 G in IV NS 0.9% 100 ML IV SCH ×2 (05:21→15:18)
[2016-11-07] MEDS: MORPHINE SULFATE INJ 2 MG/ML DISP.SYRIN IV PRN ×3 (05:23→22:33)
[2016-11-07 06:49] LABS: BASOPHILS % (AUTO) 0.2 % (0.0-2.0); HEMATOCRIT 29 % (39-51); HEMOGLOBIN 9.7 g/dL (13.5-17.5); LYMPHOCYTES # (AUTO) 1.6 /CMM (0.8-4.8); LYMPHOCYTES % (AUTO) 13.3 % (20.0-44.0); MEAN CORPUSCULAR HEMOGLOBIN 30 PG (26.0-33.0); MEAN CORPUSCULAR HGB CONC 33 g/dl (31.0-36.0); MEAN CORPUSCULAR VOLUME 92 fL (80-96); MONOCYTES # (AUTO) 0.8 /CMM (0.1-1.30); MONOCYTES % (AUTO) 6.8 % (2.0-12.0); NEUTROPHILS # (AUTO) 9.5 /CMM (1.8-8.9); NEUTROPHILS % (AUTO) 79.7 % (43.0-81.0); PLATELET COUNT (AUTO) 423 /CMM (150-450); RDW COEFFICIENT OF VARIATION 15.3 (11.5-15.0); RED BLOOD CELL COUNT(AUTO) 3.21 MIL/uL (4.5-6.0); WHITE BLOOD COUNT (AUTO) 11.9 K/uL (4.3-11.0)
[2016-11-07 07:09] LABS: CALCIUM, SERUM 8.1 mg/dL (8.5-10.1); CREATININE 0.4 mg/dL (0.6-1.3); POTASSIUM 3.6 mmol/L (3.5-5.1)
[2016-11-07 08:00] VITALS: BP 123/92
[2016-11-07] MEDS: Z GUARD REMEDY 2 OZ OINT TP PRN (11:19)
[2016-11-07] MEDS: HYDROGEL DRESSING 90 GM TUBE TP SCH (11:20)
[2016-11-07] MEDS: DAKINS QUARTER STRENGTH (0.125%) 480 ML BOTTLE TOP SCH (11:22)
[2016-11-07 16:10] VITALS: BP 118/79
[2016-11-07] MEDS ORDERED: LORAZEPAM INJ 2 MG/ML VIAL IV ONE (18:00)
[2016-11-07 18:10] LABS: ABG BASE EXCESS 14.7 mmol/L; ABG OXYGEN SATURATION 92.2 % (92.0-98.5); ABG PCO2 60.1 mmHg (35.0-45.0); ABG PH 7.452 (7.350-7.450); ABG PO2 66.6 mmHg (75.0-100.0); ABG TOTAL HEMOGLOBIN 11.2 G/dL (13.5-18.0); AaDO2 222.3 mmHg; COHb 1.2 % (0.5-1.5); MetHb 0.7 % (0.0-1.5); O2Hb 90.4 % (94.0-97.0); SITE, ABG Right Radial; VENT MODE, BG AC 12 450 50% +5
[2016-11-07] MEDS ORDERED: LORAZEPAM INJ 2 MG/ML VIAL IV PRN (18:30)
--- NOTE | 2016-11-07 18:31 | NUR ---
PULMONARY NOTIFIED REGARDING ABG AND CODE STATUS ,REVIEWED MEDS INCREASE DOSE OF ATIVAN TO 3MG AND WILL CONTINUE TO MONITOR.
--- NOTE | 2016-11-07 18:55 | NUR ---
CLARIFIED WITH PRIMARY MD DOSAGE OF ATIVAN ,ADJUSTED TO 2MG PER DR. BECKMAN AND REPEAT ABG IN AM.
--- NOTE | 2016-11-07 19:30 | NUR ---
CIGAR PACKER AND PICKER INITIAL NOTE RECEIVED REPORT FROM FARRAH PACKAGING TECHNICIAN. PT IS IN BED, TACHYPNIC, RR 28. LUNG SOUNDS RHONCHI. SUCTIONED SECRETIONS. PT IS AWAKE BUT NON VERBAL. BOWEL SOUNDS PRESENT WITH GT FEEDING RUNNING, NO RESIDUAL. IV LEFT FA INTACT AND PATENT BUT LEAKING; WILL MONITOR FOR INFILTRATION. KOLB INTACT AND DRAINING URINE. PT RESTRAINTS INTACT, PT PULLS AT TRACH SITE WHEN NOT RESTRAINED. REPOSITIONED FOR COMFORT. BED IN LOW LOCKED POSITION. WILL CONTINUE TO MONITOR.
[2016-11-07 20:00] VITALS: BP 96/55
[2016-11-07] MEDS: NUTREN PULMONARY 1,000 ML BAG GT PRN (20:04)
[2016-11-08] VITALS: BP 119/69
[2016-11-08] MEDS: ALBUTEROL HALF STRENGTH 1.25 MG/3 ML VIAL.NEB NEB SCH ×4 (01:54→19:40)
[2016-11-08] MEDS: IPRATROPIUM NEB FS 0.5 MG/2.5 ML AMPUL.NEB NEB SCH ×4 (01:55→19:40)
[2016-11-08] MEDS ORDERED: IV NS 0.9% 250 ML IV ONE (03:22)
[2016-11-08 04:00] VITALS: BP_SYST 92; BP_SYST 99; BP_DIAS 59; BP_DIAS 65
[2016-11-08] MEDS: VANCOMYCIN 1 GM in IV D5W 250 ML IV SCH ×2 (04:05→15:07)
[2016-11-08] MEDS: MEROPENEM 1 G in IV NS 0.9% 100 ML IV SCH ×2 (05:18→16:14)
--- NOTE | 2016-11-08 07:00 | NUR ---
TELE NOTE RECEIVED ON BED,AWAKE AND NON VERBAL , VENT DEPENDENT , TRACH CARE DONE, TOLERATING CURRENT VENT SETTING WELL, HR IN 120'S,TOLERATING GT FEEDING WELL , NO RESIDUAL NOTED, LEFT WRIST IV SITE CDI, KOLB INTACT DRAINING TO GRAVITY . PT RESTRAINTS INTACT, PT PULLS AT TRACH SITE WHEN NOT RESTRAINED. REPOSITIONED FOR COMFORT.SR UP x3, BED IN LOW AND LOCKED POSITION. WILL CONTINUE TO MONITOR PT CLOSELY AND NOTIFY MD FOR ANY SIGNIFICANT CHANGES.
[2016-11-08 07:14] LABS: BASOPHILS % (AUTO) 0.2 % (0.0-2.0); EOSINOPHILS # (AUTO) 0.2 /CMM (0.0-0.7); EOSINOPHILS % (AUTO) 1.5 % (0.0-6.0); HEMATOCRIT 31 % (39-51); HEMOGLOBIN 10.1 g/dL (13.5-17.5); LYMPHOCYTES % (AUTO) 10.1 % (20.0-44.0); MEAN CORPUSCULAR HEMOGLOBIN 30 PG (26.0-33.0); MEAN CORPUSCULAR HGB CONC 33 g/dl (31.0-36.0); MEAN CORPUSCULAR VOLUME 91 fL (80-96); MONOCYTES # (AUTO) 0.6 /CMM (0.1-1.30); MONOCYTES % (AUTO) 6.2 % (2.0-12.0); NEUTROPHILS # (AUTO) 8.5 /CMM (1.8-8.9); PLATELET COUNT (AUTO) 425 /CMM (150-450); RDW COEFFICIENT OF VARIATION 15.9 (11.5-15.0); RED BLOOD CELL COUNT(AUTO) 3.39 MIL/uL (4.5-6.0); WHITE BLOOD COUNT (AUTO) 10.4 K/uL (4.3-11.0)
[2016-11-08 07:37] LABS: CALCIUM, SERUM 8.5 mg/dL (8.5-10.1); CREATININE 0.4 mg/dL (0.6-1.3); POTASSIUM 3.9 mmol/L (3.5-5.1)
[2016-11-08 08:00] VITALS: BP 114/75
[2016-11-08] MEDS: DAKINS QUARTER STRENGTH (0.125%) 480 ML BOTTLE TOP SCH (08:59)
[2016-11-08] MEDS: HYDROGEL DRESSING 90 GM TUBE TP SCH (09:00)
[2016-11-08 09:25] LABS: IMMUNOGLOBULIN A, SERUM 681 mg/dL (61-437); IMMUNOGLOBULIN G, SERUM 1636 mg/dL (700-1600); IMMUNOGLOBULIN M, SERUM 43 mg/dL (15-143)
[2016-11-08 09:34] LABS: ABG BASE EXCESS 15.2 mmol/L; ABG OXYGEN SATURATION 86.3 % (92.0-98.5); ABG PH 7.352 (7.350-7.450); ABG PO2 57.4 mmHg (75.0-100.0); COHb 0.9 % (0.5-1.5); MetHb 0.5 % (0.0-1.5); O2Hb 85.1 % (94.0-97.0); PEEP,BG 5 cm H2O; SITE, ABG Left Radial; VT, ABG 450 mL
--- NOTE | 2016-11-08 10:06 | NUR ---
RT POST ABG RESULTS SHOWN TO DR. BHATTI. INCREASED VT TO 500 PER MD ORDER. RN NOTIFIED AND AWARE. WILL CONTINUE TO MONITOR THE PATIENT FOR ANY CHANGE OF CONDITION. Addendum: 11/08/16 at 1056 by MARCO ANTONIO KHAN RT Amended: Links added.
[2016-11-08 12:00] VITALS: BP 131/68
[2016-11-08] MEDS: MORPHINE SULFATE INJ 2 MG/ML DISP.SYRIN IV PRN (12:17)
--- NOTE | 2016-11-08 14:00 | NUR ---
RN NOTES TRACH CARE DONE, R WRIST IV SITE CDI,ST ON TELE, CONTINUE TO MONITOR .
[2016-11-08] MEDS: NUTREN PULMONARY 1,000 ML BAG GT PRN (14:13)
--- NOTE | 2016-11-08 15:00 | NUR ---
RT RECEIVED PT TRACHED ON SHILEY #8 CUFFED ON [facility] VENT. WAREHOUSE DIRECTOR DONE. BILAT BREATH SOUNDS ON AUSCULTATION. VENT PLUGGED INTO RED OUTLET. AMBU BAG AT HEAD OF BED. TX'S GIVEN, NO ADVERSE REACTIONS OBSERVED. SUCTIONED SMALL AMOUNTS OF THICK, YELLOW SECRETIONS. NO SIGNS OF DISTRESS NOTED AT THIS TIME. WILL CONTINUE TO MONITOR THE PT FOR ANY CHANGES. Addendum: 11/08/16 at 1830 by MARCO ANTONIO KHAN RT Amended: Links added.
[2016-11-08 16:00] VITALS: BP 131/68
[2016-11-08] MEDS: LORAZEPAM INJ 2 MG/ML VIAL IV PRN (16:48)
--- NOTE | 2016-11-08 18:25 | NUR ---
RN NOTES PT STABLE AT THIS TIME , RESTLESS AT TIMES , MEDICATED PER MD ORDER , TOLERATING TF WELL, NO RESIDUAL NOTED,KOLB TO GRAVITY DRAINING WELL, NO SIGNIFICANT CHANGES NOTED ON THIS SHIFT
[2016-11-08 20:00] VITALS: BP 103/60
--- NOTE | 2016-11-08 20:00 | NUR ---
RN NOTES PT ASLEEP ON BED WITH TRACH CONNECTED TO VENT SETTING OF AC 14 TV 500 FIO2 50% PEEP 5 TACHYPNEIC FOR 120'S TO 130'S SHOWS. BREATH SOUND WITH ROHONCHI. PT OPENS EYES , NON VERBAL. GTF NUTREN @ 60 CC/HR TOLERATED WELL, PATENCY CHECKED. WITH ZERO RESIDUAL. IV SITE ON RIGHT WRIST G 20 INTACT AND PATENT. BREATHING TX. GIVEN BY RT AND PATIENT STARTED TO CALM DOWN HR GOES TO 112 BPM. OFFLOADED EXT WIT PILLOWS. REDUCED PRESSURE TO BONY PROMINENCE AREA. WILL CONTINUE TO MONITOR.
[2016-11-09] VITALS (8 sets, daily range): BP systolic 94–138; BP diastolic 54–77
[2016-11-09] MEDS: MORPHINE SULFATE INJ 2 MG/ML DISP.SYRIN IV PRN ×3 (00:14→21:59)
[2016-11-09] MEDS: IPRATROPIUM NEB FS 0.5 MG/2.5 ML AMPUL.NEB NEB SCH ×4 (01:03→19:56)
[2016-11-09] MEDS: ALBUTEROL HALF STRENGTH 1.25 MG/3 ML VIAL.NEB NEB SCH ×4 (01:03→19:56)
[2016-11-09] MEDS: LORAZEPAM INJ 2 MG/ML VIAL IV PRN ×2 (02:58→20:26)
[2016-11-09] MEDS: VANCOMYCIN 1 GM in IV D5W 250 ML IV SCH ×2 (03:04→17:47)
[2016-11-09] MEDS ORDERED: VANCOMYCIN 0.75 GM in IV D5W 250 ML IV SCH (04:00)
[2016-11-09] MEDS: NUTREN PULMONARY 1,000 ML BAG GT PRN (04:24)
[2016-11-09] MEDS: MEROPENEM 1 G in IV NS 0.9% 100 ML IV SCH ×2 (04:24→17:44)
[2016-11-09 06:58] LABS: BASOPHILS % (AUTO) 0.2 % (0.0-2.0); EOSINOPHILS # (AUTO) 0.3 /CMM (0.0-0.7); HEMATOCRIT 30 % (39-51); HEMOGLOBIN 9.9 g/dL (13.5-17.5); LYMPHOCYTES # (AUTO) 1.5 /CMM (0.8-4.8); LYMPHOCYTES % (AUTO) 11.1 % (20.0-44.0); MEAN CORPUSCULAR HEMOGLOBIN 31 PG (26.0-33.0); MEAN CORPUSCULAR HGB CONC 33 g/dl (31.0-36.0); MEAN CORPUSCULAR VOLUME 93 fL (80-96); MONOCYTES # (AUTO) 0.8 /CMM (0.1-1.30); MONOCYTES % (AUTO) 5.9 % (2.0-12.0); NEUTROPHILS # (AUTO) 11.2 /CMM (1.8-8.9); NEUTROPHILS % (AUTO) 80.8 % (43.0-81.0); PLATELET COUNT (AUTO) 422 /CMM (150-450); RDW COEFFICIENT OF VARIATION 15.4 (11.5-15.0); RED BLOOD CELL COUNT(AUTO) 3.24 MIL/uL (4.5-6.0); WHITE BLOOD COUNT (AUTO) 13.8 K/uL (4.3-11.0)
[2016-11-09 07:04] LABS: CALCIUM, SERUM 8.3 mg/dL (8.5-10.1); CREATININE 0.4 mg/dL (0.6-1.3)
--- NOTE | 2016-11-09 07:10 | NUR ---
RN NOTES PT ASLEEP WELL ON BED. EPISODE OF RESTLESSNESS THAT CAUSES TACHYCARDIA NOTED. PRN MEDICINE GIVEN ORDERED AND REMAINED EFFECTIVE NO SIGNIFICANT CHANGE OF CONDITON. ALL DUE MEDICINE TOLERATED WELL IV ATB CARTER WITHOUT ASE NOTED. KEPT PT CLEAN AND COMFORTABLE IN BED. ENDORSED CONTINUITY OF CARE TO AM NURSE.
--- NOTE | 2016-11-09 08:00 | NUR ---
TELE1/RN AM SHIFT INITIAL NOTES RECEIVED PT ASLEEP IN BED, PT OPEN EYES, OBTUNDED, NO FEVER OR ACUTE RESPIRATORY DISTRESS NOTED. ON VENTILATOR RATES SET PRESCRIBED, SATURATING @ 100%, LUNG SOUNDS DIMINISHED, SUCTIONED FOR AIRWAY CLEARANCE. ON TELE WITH TACHYCARDIA, HR 118. IV SITE ON TKO, PATENT WITH NO S/S OF INFECTION. GTF ON GOING @ 60CC/HR, NO GASTRIC RESIDUAL NOTED. FLUSHED, PATENT. KOLB CATHETER INTACT, NOTED WITH YELLOW URINE OUTPUT. RESTRAINTS REMOVED TO CHECK FOR CIRCULATION AND COMFORT THEN PLACED BACK. DVT SLEEVED PLACED MACHINE ON. PT IS COMFORTABLE AT THIS TIME. SCHEDULED AM MEDS TO BE GIVEN.
[2016-11-09] MEDS: DAKINS QUARTER STRENGTH (0.125%) 480 ML BOTTLE TOP SCH (09:00)
[2016-11-09] MEDS: HYDROGEL DRESSING 90 GM TUBE TP SCH (09:00)
[2016-11-09 09:35] LABS: ABG BASE EXCESS 20.9 mmol/L; ABG OXYGEN SATURATION 95.3 % (92.0-98.5); ABG PCO2 62.6 mmHg (35.0-45.0); ABG PH 7.495 (7.350-7.450); ABG PO2 79.7 mmHg (75.0-100.0); ABG TOTAL HEMOGLOBIN 10.8 G/dL (13.5-18.0); AaDO2 206.4 mmHg; COHb 1.2 % (0.5-1.5); MetHb 0.4 % (0.0-1.5); O2Hb 93.8 % (94.0-97.0); PEEP,BG 5 cm H2O; SITE, ABG Left Radial; VT, ABG 500 mL
[2016-11-09 11:16] LABS: *SPE A/G RATIO 0.5 (0.7-1.7); *SPE ALBUMIN 1.9 g/dL (2.9-4.4); *SPE ALPHA-1-GLOBULIN 0.4 g/dL (0.0-0.4); *SPE ALPHA-2-GLOBULIN 0.7 g/dL (0.4-1.0); *SPE BETA GLOBULIN 0.9 g/dL (0.7-1.3); *SPE GLOBULIN, TOTAL 3.7 g/dL (2.2-3.9); *SPE M-SPIKE Not Observed g/dL (Not Observed); *SPE PROTEIN TOTAL 5.6 g/dL (6.0-8.5); *SPEGAMMA GLOBULIN 1.8 g/dL (0.4-1.8)
[2016-11-09] MEDS ORDERED: LIDOCAINE HCL/PF 1% 30 ML SDV ONE (11:34)
[2016-11-09] MEDS ORDERED: FENTANYL PF 100MCG/2ML AMPUL ONE (12:44)
--- NOTE | 2016-11-09 12:54 | NUR ---
TELE1/RN OFF TO OR - WOUND DEBRIDEMENT PT LEFT TELE1 UNIT VIA BED IN STABLE, ACCOMPANIED BY OR NURSE, OR TRANSPORT AND BUILDING ECONOMIST FOR WOUND DEBRIDEMENT TO BE PERFORMED BY Calderon BRUNO
--- NOTE | 2016-11-09 13:30 | NUR ---
TELE1/RN BACK FROM OR STATUS POST WOUND DEBRIDEMENT. RESUMED PREVIOUS ORDERS. PT PLACED BACK ON VENTILATOR. STABLE AT THIS TIME. ON GOING MONITORING.
--- NOTE | 2016-11-09 15:00 | NUR ---
RT PATIENT RECEIVED TRACHED ON SHILEY #8 CUFFED ON [facility] VENT. HOTEL SERVICES SUPERVISOR DONE. BILAT BREATH SOUNDS ON AUSCULTATION. VENT PLUGGED INTO RED OUTLET. AMBU BAG AT HEAD OF BED. TX'S GIVEN, NO ADVERSE EFFECTS OBSERVED. SUCTIONED SMALL AMOUNTS OF THICK, WHITE/YELLOW SECRETIONS. NO SIGNS OF DISTRESS NOTED AT THIS TIME. WILL CONTINUE TO MONITOR THE PT FOR ANY CHANGE OF CONDITION. Addendum: 11/09/16 at 1657 by MARCO ANTONIO KHAN RT Amended: Links added.
--- NOTE | 2016-11-09 16:00 | NUR ---
TD/RN AFTERNOON ROUNDS PM CARE PROVIDED, PT SUCTIONED AND REPOSITIONED. NO CHANGE OF CONDITION. MONITORING CONTINUED.
--- NOTE | 2016-11-09 19:08 | NUR ---
RN INITIAL NOTES RECEIVED PATIENT IN BED, AWAKE WITH GOOD EYE TRACKING NOTED, PATIENT IS NONVERBAL, NO ACUTE SIGNS OF PAIN/DISCOMFORT. PATIENT WITH TRACH, C/D/I, MIDLINE, CONNECTED TO MECH VENT, TOLERATING CURRENT SETTINGS WELL, SATURATING WELL AT 100%. AIRWAY SUCTIONED NEEDED, WITH THICK, YELLOW SECRETIONS. ST ON TELE MONITOR WITH HR OF 102. GTF INFUSING WELL, GASTRIC RESIDUAL NOTED. WITH PIV ON R AC G22, L AC G22, BOTH FLUSHED AND PATENT, NO SIGNS OF INFILTRATION NOTED. B SOFT WRIST RESTRAINTS RELEASED AT THIS TIME, PATIENT IS NOT AGITATED AT THIS TIME, RESTING COMFORTABLY, NO DISTRESS, ON CLOSE VISUAL MONITORING. GOOD CIRCULATION AND SKIN INTEGRITY NOTED. F/C INTACT AND DRAINING WELL WITH CLOUDY, YELLOW URINE WITH SEDIMENTS NOTED. PATIENT'S NEEDS ANTICIPATED AND MET. SAFETY AND COMFORT ENSURED. BED IN LOW AND LOCKED POSITION. CALL LIGHT IN REACH. WILL MONITOR CLOSELY.
--- NOTE | 2016-11-09 19:39 | NUR ---
TD/RN AM SHIFT END NOTES ALL NEEDS PROVIDED. NO ACUTE CHANGE OF CONDITION NOTED DURING THE SHIFT. PT ENDORSED TO PM NURSE TO CONTINUE CARE. CL WITHIN REACHED AND SAFETY MAINTAINED.
--- NOTE | 2016-11-09 20:15 | NUR ---
RN NOTES PATIENT IN BED, NOTED WITH RESPIRATORY DISTRESS. OBSERVED WITH INCREASED WORK OF BREATHING, RAPID AND SHALLOW BREATHS. PATIENT WITH NO CHANGE IN LOC NOTED, ALERT, NONVERBAL. PATIENT'S VS: 94/56, 114, 34 BREATHS/MIN, 96% O2 SATURATION. AIRWAY SUCTIONED NEEDED. PATIENT GIVEN ATIVAN PRN. WILL MONITOR.
--- NOTE | 2016-11-09 21:00 | NUR ---
RN NOTES REASSESSED PATIENT, PATIENT MORE CALM AT THIS TIME. RESPIRATION IS EVEN AND UNLABORED. 100% SATURATION. B SOFT WRIST RESTRAINTS RELEASED, NO EPISODE OF PULLING ON TUBINGS. ON CLOSE MONITORING.
--- NOTE | 2016-11-09 22:00 | NUR ---
RN NOTES PATIENT OBSERVED TO BE IN DISTRESS. VS: 107/68, 127, 38 BREATHS/MIN, INCREASED WORK OF BREATHING, DESATURATED TO 88%, AIRWAY SUCTIONED WITH MINIMAL TO NO SECRETIONS OBTAINED. FACIAL GRIMACING, RESTLESSNESS NOTED. MEDICATED PATIENT WITH MORPHINE SULFATE ORDERED PRN. WILL MONITOR CLOSELY.
--- NOTE | 2016-11-09 22:15 | NUR ---
RN NOTES PATIENT MORE CALM AT THIS TIME. NO DISTRESS. RESPIRATION IS EVEN AND UNLABORED. SATURATION IMPROVED, 92-94%. ON CLOSE MONITORING.
--- NOTE | 2016-11-09 23:00 | NUR ---
RN NOTES PATIENT IN BED, SLEEPING COMFORTABLY. NO DISTRESS NOTED AT THIS TIME. RESPIRATION IS EVEN AND UNLABORED. SATURATION AT 96%. VS: 105/63, 117, 20.
[2016-11-10] VITALS (28 sets, daily range): BP systolic 61–133; BP diastolic 39–75
--- NOTE | 2016-11-10 00:30 | NUR ---
RN NOTES PATIENT NOTED TO HAVE DESATURATED IN THE 88-89% WITH CURRENT [facility] VENT SETTINGS. PATIENT WITH RAPID, SHALLOW BREATHING, FACIAL GRIMACING NOTED, RESTLESS. MINIMAL TO SCANT AMOUNT OF SECRETION NOTED WITH TRACHEAL SUCTION. COARSE BREATH SOUNDS. PATIENT'S HR IN THE 120s. INCREASED WORK OF BREATHING, 32 BREATHS PER MINUTE. 105/62mmHg. COORDINATED WITH RT FOR PATIENT'S BREATHING TREATMENT. ATIVAN PRN ADMINISTERED FOR NOTED RESPIRATORY DISTRESS. WILL MONITOR.
[2016-11-10] MEDS: LORAZEPAM INJ 2 MG/ML VIAL IV PRN ×3 (00:45→10:29)
--- NOTE | 2016-11-10 01:00 | NUR ---
RN NOTES RT ADMINISTERED BREATHING TREATMENT ORDERED. PATIENT AT THIS TIME IS MORE CALM, RESPIRATION IS EVEN AND UNLABORED. PATIENT'S SATURATION IMPROVED TO 95%. 108/63, 114. ON CLOSE MONITORING.
[2016-11-10] MEDS: IPRATROPIUM NEB FS 0.5 MG/2.5 ML AMPUL.NEB NEB SCH ×4 (01:10→19:55)
[2016-11-10] MEDS: ALBUTEROL HALF STRENGTH 1.25 MG/3 ML VIAL.NEB NEB SCH ×4 (01:10→19:55)
[2016-11-10] MEDS: NUTREN PULMONARY 1,000 ML BAG GT PRN (03:36)
[2016-11-10] MEDS: MORPHINE SULFATE INJ 2 MG/ML DISP.SYRIN IV PRN ×3 (03:36→19:40)
[2016-11-10] MEDS: VANCOMYCIN 0.75 GM in IV D5W 250 ML IV SCH ×2 (03:38→15:51)
--- NOTE | 2016-11-10 04:00 | NUR ---
RN NOTES AM CARE RENDERED TO THE PATIENT. SURGICAL DRESSING POST SACRAL DEBRIDEMENT REMAINS INTACT, CLEAN AND DRY, NO SOILAGE NOTED. REINFORCED DRESSING NEEDED. PATIENT PREMEDICATED WITH MORPHINE SULFATE PRIOR TO AM CARE RENDERED; TOLERATED CARE WELL, NO DISTRESS NOTED. F/C REMAINS INTACT, DRAINING WELL. TRACH CARE RENDERED, SUCTIONED AIRWAY NEEDED. HOB ELEVATED. GTF INFUSING WELL, NO GASTRIC RESIDUAL NOTED. PATIENT'S SAFETY AND COMFORT ENSURED. ON CONTINUOUS MONITORING.
[2016-11-10] MEDS ORDERED: IV NS 0.9% 250 ML IV ONE (04:49)
[2016-11-10] MEDS: MEROPENEM 1 G in IV NS 0.9% 100 ML IV SCH ×2 (05:04→17:02)
--- NOTE | 2016-11-10 06:28 | NUR ---
RN CLOSING NOTES PATIENT IN BED, SLEEPING COMFORTABLY. IN NO ACUTE DISTRESS. REMAINS ST ON TELE, HR AT 115. PATIENT SATURATION KEPT AT 95%, AIRWAY SUCTIONED NEEDED AND KEPT PATENT. NO CLINICAL INDICATION FOR B SOFT WRIST RESTRAINTS OBSERVED OVERNIGHT. PATIENT WITH NO PHYSICAL RESTRAINTS OVERNIGHT. ON CLOSE VISUAL MONITORING. PATIENT'S SAFETY AND COMFORT ENSURED AT ALL TIMES. BED IN LOW AND LOCKED POSITION. PATIENT TURNED AND REPOSITIONED [id number] AND PRN FOR COMFORT. ALL DUE MEDS GIVEN ORDERED. AM LABS DRAWN. WILL ENDORSE ACCORDINGLY FOR CONTINUITY OF CARE.
[2016-11-10 06:48] LABS: BASOPHILS % (AUTO) 0.2 % (0.0-2.0); EOSINOPHILS # (AUTO) 0.5 /CMM (0.0-0.7); EOSINOPHILS % (AUTO) 2.9 % (0.0-6.0); HEMATOCRIT 30 % (39-51); HEMOGLOBIN 9.6 g/dL (13.5-17.5); LYMPHOCYTES # (AUTO) 1.5 /CMM (0.8-4.8); LYMPHOCYTES % (AUTO) 9.2 % (20.0-44.0); MEAN CORPUSCULAR HEMOGLOBIN 28 PG (26.0-33.0); MEAN CORPUSCULAR HGB CONC 32 g/dl (31.0-36.0); MEAN CORPUSCULAR VOLUME 89 fL (80-96); MONOCYTES # (AUTO) 0.7 /CMM (0.1-1.30); MONOCYTES % (AUTO) 4.5 % (2.0-12.0); NEUTROPHILS # (AUTO) 13.2 /CMM (1.8-8.9); NEUTROPHILS % (AUTO) 83.2 % (43.0-81.0); PLATELET COUNT (AUTO) 383 /CMM (150-450); RDW COEFFICIENT OF VARIATION 15.7 (11.5-15.0); RED BLOOD CELL COUNT(AUTO) 3.38 MIL/uL (4.5-6.0); WHITE BLOOD COUNT (AUTO) 15.9 K/uL (4.3-11.0)
--- NOTE | 2016-11-10 08:00 | NUR ---
TELE1/RN AM SHIFT INITIAL NOTES RECEIVED PT ASLEEP IN BED, OBTUNDED, REACT TO LIGHT TOUCH. NO ACUTE RESPIRATORY DISTRESS NOTED. ON VENTILATOR RATES SET PRESCRIBED, SATURATING @ 94%, LUNG SOUNDS DIMINISHED, SUCTIONED FOR AIRWAY CLEARANCE. ON TELE WITH SINUS TACHY, HR 112. IV SITE, FLUSHED PATENT, NO S/S OF INFECTION. GTF ON GOING @ 60CC/HR, NO GASTRIC RESIDUAL NOTED. FLUSHED, PATENT. KOLB CATHETER INTACT, NOTED WITH YELLOW URINE OUTPUT. DVT SLEEVED IN PLACED MACHINE ON. PT IS COMFORTABLE AT THIS TIME. SCHEDULED AM MEDS TO BE GIVEN. ON GOING MONITORING.
[2016-11-10] MEDS: DAKINS QUARTER STRENGTH (0.125%) 480 ML BOTTLE TOP SCH (09:24)
[2016-11-10] MEDS: HYDROGEL DRESSING 90 GM TUBE TP SCH (09:24)
--- NOTE | 2016-11-10 12:00 | NUR ---
TELE1/RN NOON ROUNDS PT SUCTIONED, NOTED WITH EPISODES DESATURATION, PT SUCTIONED, RT CALLED TO ASSIST. PT THEN MAINTAINED SATURATION OF 94% BUT NOTED USING ACCESSORY MUSCLES. ON CLOSE MONITORING.
--- NOTE | 2016-11-10 16:00 | NUR ---
TELE1/RN AFTERNOON ROUNDS PT PROVIDED WITH PM CARE, NOTED PT HAVING RESPIRATORY DISTRESS. CALLED RT FOR ASSISTANCE. PT WOULD SATURATE @ 97%, BUT HAS SOB. CHARGE NURSE AWARE. CLOSELY MONITORING.
--- NOTE | 2016-11-10 18:30 | NUR ---
TELE1/RN DESATURATION NOTIFIED BY RT, WENCESLAO PT DESATURATING, PER RT INCREASED FIO2 TO 75% STILL DESATURATING TO 50%, EVENTUALLY INCREASED TO 100%. DR. ARMENTA MADE AWARE ASSESSED PT WITH RT, ORDERED STAT ABG. IN THE MEAN TIME CONTACTED DR. BECKMAN NOTIFIED HIM THAT DR. ARMENTA AGREED TO TRANSFER PT TO ICU. PER DR. BECKMAN TO INITIATE SEPSIS PROTOCOL, CHARGE NURSE JENNIFER MADE AWARE, ACKNOWLEDGED BY CHARGE NURSE WILL INITIATE PROTOCOL.
--- NOTE | 2016-11-10 18:50 | NUR ---
PT DESATURATED ON 50% FIO2. PLACED ON 100%. DR. MCCALL, ZIPPER JOINER AMY, AND CHANEL MCGINNIS AWARE. ABG TO BE DONE. PT TO BE TRANSFERRED TO ICU.
[2016-11-10 19:34] LABS: ABG BASE EXCESS 21.6 mmol/L; ABG OXYGEN SATURATION 97.4 % (92.0-98.5); ABG PCO2 88.6 mmHg (35.0-45.0); ABG PH 7.373 (7.350-7.450); ABG PO2 113.4 mmHg (75.0-100.0); ABG TOTAL HEMOGLOBIN 9.9 G/dL (13.5-18.0); COHb 1.3 % (0.5-1.5); MetHb 0.8 % (0.0-1.5); O2Hb 95.4 % (94.0-97.0); PEEP,BG 5 cm H2O; SITE, ABG Left Radial; VT, ABG 500 mL
[2016-11-10] MEDS ORDERED: IV NS 0.9% 1,000 ML ONE ×2 (19:58→20:47)
[2016-11-10] MEDS ORDERED: IV SET PRIMARY PUMP SET 1 EA INFUS.SET MC ONE ×2 (19:59→20:35)
--- NOTE | 2016-11-10 20:00 | NUR ---
TELE1/RN PT ENDORSED FOR TRANSFER PT ENDORSED TO PM NURSE TO TRANSFER IN ICU. PT TO BE TRANSFERRED SOON.
--- NOTE | 2016-11-10 20:16 | NUR ---
NETWORK SYSTEMS ENGINEER: RECEIVED PT TRANSFERRED FROM TEA DUE TO RESPIRATORY DISTRESS, CARE PLAN DISCUSSED WITH DR BECKMAN VIA PHONE, PT HAS LOW BP RUNNING 73/48, HEAR RATE SINUS TACHYCARDIA 130, PT ALREADY ON VANCOMYCIN, MERREM IV ANTIBIOTICS, NS 1 LITRE BOLUS RUNNING THEN FOLLOWED BY NS AT 100 ML/HR. IF BP LOW MAY START PRESSORS, PICC LINE ORDERS RECEIVED FROM DR BECKMAN. ONGOING MONITORING...
--- NOTE | 2016-11-10 20:27 | NUR ---
NEONATAL NURSE: PICC LINE CONSENT GOT FROM PT'S SON, AGREED, WITNESSED WITH ANOTHER RN/ED , INTERIOR ASSEMBLIES INSTALLER AWARE
[2016-11-10] MEDS ORDERED: IV NS 0.9% 1,000 ML IV ONE (20:30)
[2016-11-10] MEDS ORDERED: NOREPINEPHRINE 4 MG/4 ML AMPUL IV ONE ×2 (20:33)
[2016-11-10] MEDS ORDERED: IV D5W 500 ML IV ONE (20:34)
[2016-11-10] MEDS: NOREPINEPHRINE 16 MG in IV D5W 500 ML IV PRN (20:43)
[2016-11-10] MEDS: IV NS 0.9% 1,000 ML IV PRN (20:53)
--- NOTE | 2016-11-10 21:08 | NUR ---
LITIGATION PARTNER; BP STILL VERY LOW AFTER ONE LITRE BOLUS GIVEN, LEVOPHED STARTED AT 2MCG/MIN PER PROTOCOL. AWAITING PICC LINE INSERTION ....
--- NOTE | 2016-11-10 21:44 | NUR ---
PETROPHYSICAL ENGINEER; LEVOPHED TITRATED TO 4 MCG/MIN, SBP 68/43, KEEP MONITORING...
[2016-11-11] VITALS (108 sets, daily range): BP systolic 71–137; BP diastolic 38–90
[2016-11-11] MEDS: LORAZEPAM INJ 2 MG/ML VIAL IV PRN ×4 (00:44→21:59)
--- NOTE | 2016-11-11 00:49 | NUR ---
TRACK LINER OPERATOR: PT BEING VERY RESTLESS, MOVING AROUND, HEART RATE 120, RR 39, RESPIRATORY THERAPIST CALLED MADE AWARE SAID PT ALWAYS LIKE THAT "HE NEEDS SOME SEDATION", ATIVAN 2 MG IV PRN GIVEN. KEEP MONITORING....
[2016-11-11] MEDS: IPRATROPIUM NEB FS 0.5 MG/2.5 ML AMPUL.NEB NEB SCH ×4 (01:09→20:08)
[2016-11-11] MEDS: ALBUTEROL HALF STRENGTH 1.25 MG/3 ML VIAL.NEB NEB SCH ×4 (01:09→20:08)
[2016-11-11] MEDS: MORPHINE SULFATE INJ 2 MG/ML DISP.SYRIN IV PRN ×5 (01:23→20:54)
[2016-11-11] MEDS: VANCOMYCIN 0.75 GM in IV D5W 250 ML IV SCH ×2 (03:58→16:08)
[2016-11-11] MEDS: MEROPENEM 1 G in IV NS 0.9% 100 ML IV SCH ×2 (04:54→17:41)
[2016-11-11 05:03] LABS: BASOPHILS % (AUTO) 0.1 % (0.0-2.0); EOSINOPHILS % (AUTO) 0.2 % (0.0-6.0); HEMATOCRIT 26 % (39-51); HEMOGLOBIN 8.4 g/dL (13.5-17.5); LYMPHOCYTES # (AUTO) 1.4 /CMM (0.8-4.8); LYMPHOCYTES % (AUTO) 6.7 % (20.0-44.0); MEAN CORPUSCULAR HEMOGLOBIN 28 PG (26.0-33.0); MEAN CORPUSCULAR HGB CONC 32 g/dl (31.0-36.0); MEAN CORPUSCULAR VOLUME 88 fL (80-96); MONOCYTES # (AUTO) 1.1 /CMM (0.1-1.30); MONOCYTES % (AUTO) 5.5 % (2.0-12.0); NEUTROPHILS # (AUTO) 17.7 /CMM (1.8-8.9); NEUTROPHILS % (AUTO) 87.5 % (43.0-81.0); PLATELET COUNT (AUTO) 370 /CMM (150-450); RDW COEFFICIENT OF VARIATION 15.8 (11.5-15.0); RED BLOOD CELL COUNT(AUTO) 2.95 MIL/uL (4.5-6.0); WHITE BLOOD COUNT (AUTO) 20.2 K/uL (4.3-11.0)
[2016-11-11 05:16] LABS: CALCIUM, SERUM 7.8 mg/dL (8.5-10.1); CREATININE 0.3 mg/dL (0.6-1.3); MAGNESIUM 1.7 mg/dL (1.8-2.4); PHOSPHORUS 3.4 mg/dL (2.5-4.9); POTASSIUM 4.1 mmol/L (3.5-5.1)
[2016-11-11] MEDS: DAKINS QUARTER STRENGTH (0.125%) 480 ML BOTTLE TOP SCH (07:54)
[2016-11-11] MEDS: HYDROGEL DRESSING 90 GM TUBE TP SCH (07:54)
--- NOTE | 2016-11-11 08:00 | NUR ---
INDUSTRIAL FURNACE FABRICATOR; ASSESSMENT RECEIVED PT VENTED VIA TRACH, SEE FLOW SHEET FOR VENT SETTINGS. PT OPENS EYES KIKE TO TRACK, DOES NOT FOLLOW COMMANDS. PT ON LEVOPHED DRIP AT 4MCH/MIN, NORMAL SALINE 100ML/HR INFUSING INTO RIGHT UPPER ARM PICC LINE. KOLB CATH INTACT DRAINING TO GRAVITY CLEAR YELLOW URINE. GTUBE INTACT CLAMPED. NOTED PT RESTLESS WITH ELEVATED RESP RATE. WILL REVIEW MEDICATIONS FOR SEDATION AND COMFORT.
[2016-11-11] MEDS: IV NS 0.9% 1,000 ML IV PRN ×2 (09:01→19:23)
[2016-11-11] MEDS: NOREPINEPHRINE 16 MG in IV D5W 500 ML IV PRN (09:02)
[2016-11-11 10:49] LABS: ABG BASE EXCESS 19.2 mmol/L; ABG OXYGEN SATURATION 90.8 % (92.0-98.5); ABG PCO2 61.8 mmHg (35.0-45.0); ABG PH 7.481 (7.350-7.450); ABG PO2 62.7 mmHg (75.0-100.0); AaDO2 224.3 mmHg; COHb 1.9 % (0.5-1.5); MetHb 0.9 % (0.0-1.5); O2Hb 88.3 % (94.0-97.0); PEEP,BG 5 cm H2O; SITE, ABG Right Radial; VT, ABG 550 mL
--- NOTE | 2016-11-11 11:50 | NUR ---
STATION COOK; PULMONARY DR. KARUNA BAHENA AT BEDSIDE UPDATE WAS GIVEN. DISCUSSED REGARDING NO RECENT CHEST X-RAY DONE. DISCUSSED REGARDING TUBE FEEDINGS. NEW ORDERS GIVEN. CONTINUE TO TITRATE LEVOPHED DRIP ACCORDINGLY TO BP.
[2016-11-11] MEDS ORDERED: IV SET PRIMARY PUMP SET 1 EA INFUS.SET MC ONE (12:24)
[2016-11-11] MEDS: Magnesium 1GM/D5W 100ML PREMIX 100 ML IV SCH ×2 (12:30→13:35)
[2016-11-11] MEDS: ACETAMINOPHEN 650 MG/20.3 ML UDC GT PRN (12:32)
[2016-11-11] MEDS: NUTREN PULMONARY 1,000 ML BAG GT PRN (14:48)
[2016-11-11] MEDS ORDERED: SECONDARY IV SET 1 EA INFUS.SET MC ONE (16:06)
--- NOTE | 2016-11-11 22:08 | NUR ---
STEAM METER READER; PT BEING VERY RESTLESS,RR 40, VENT KEEP BEEPING, GAGING, COUGHING, ATIVAN 2 MG IV PRN GIVEN. EVEN MORPHINE 2 MG IV PRN GIVEN EARLIER FOR PRN.
[2016-11-12] VITALS (92 sets, daily range): BP systolic 69–136; BP diastolic 43–92
--- NOTE | 2016-11-12 01:41 | NUR ---
HOME SUPERVISOR: WEEKLY WOUND PICTURES TAKEN, MEASUREMENT DONE SEE ON FLOW SHEET. T COMFORTABLY RESTING , NO DISTRESS.
[2016-11-12] MEDS: ALBUTEROL HALF STRENGTH 1.25 MG/3 ML VIAL.NEB NEB SCH ×4 (01:42→19:58)
[2016-11-12] MEDS: IPRATROPIUM NEB FS 0.5 MG/2.5 ML AMPUL.NEB NEB SCH ×4 (01:42→19:58)
[2016-11-12] MEDS: VANCOMYCIN 0.75 GM in IV D5W 250 ML IV SCH ×2 (03:38→16:22)
[2016-11-12] MEDS: MORPHINE SULFATE INJ 2 MG/ML DISP.SYRIN IV PRN ×5 (04:36→22:42)
[2016-11-12] MEDS: LORAZEPAM INJ 2 MG/ML VIAL IV PRN ×4 (04:36→21:03)
[2016-11-12 04:42] LABS: BASOPHILS % (AUTO) 0.2 % (0.0-2.0); EOSINOPHILS # (AUTO) 0.2 /CMM (0.0-0.7); EOSINOPHILS % (AUTO) 0.8 % (0.0-6.0); HEMATOCRIT 28 % (39-51); HEMOGLOBIN 8.9 g/dL (13.5-17.5); LYMPHOCYTES # (AUTO) 0.7 /CMM (0.8-4.8); LYMPHOCYTES % (AUTO) 3.9 % (20.0-44.0); MEAN CORPUSCULAR HEMOGLOBIN 28 PG (26.0-33.0); MEAN CORPUSCULAR HGB CONC 32 g/dl (31.0-36.0); MEAN CORPUSCULAR VOLUME 88 fL (80-96); MONOCYTES # (AUTO) 1.1 /CMM (0.1-1.30); MONOCYTES % (AUTO) 5.7 % (2.0-12.0); NEUTROPHILS % (AUTO) 89.4 % (43.0-81.0); PLATELET COUNT (AUTO) 400 /CMM (150-450); RED BLOOD CELL COUNT(AUTO) 3.16 MIL/uL (4.5-6.0)
[2016-11-12 04:58] LABS: CALCIUM, SERUM 7.6 mg/dL (8.5-10.1); CREATININE 0.3 mg/dL (0.6-1.3); MAGNESIUM 1.9 mg/dL (1.8-2.4); PHOSPHORUS 2.7 mg/dL (2.5-4.9); POTASSIUM 3.6 mmol/L (3.5-5.1)
[2016-11-12] MEDS: MEROPENEM 1 G in IV NS 0.9% 100 ML IV SCH ×3 (05:18→20:21)
--- NOTE | 2016-11-12 07:00 | NUR ---
ICU INITIAL NOTES RECEIVED PT IN BED, A/O X1, OPENS EYES TO TACTILE STIMULI, DOES NOT FOLLOW COMMANDS, PT IS ON MONITOR SHOWING SR 90'S, PT IS ON MECH VENT, SHILEY #8 AC 20 TV 550 FIO2 60% PEEP 5, NO S/S OF RESP.DISTRESS OR SOB NOTED AT THIS TIME, PT HAS GTUBE, INTACT/PATENT, RUNNING NUTREN @ 50ML/HR, TOLERATING WELL, NO RESIDUALS NOTED AT THIS TIME, PT HAS DAVIAN PICC, RUNNING LEVO @ 8MG/MIN, NS @ 100ML/HR, C/D/I/PATENT, FLUSHING WELL, NO S/S OF INFECTION/ INFILTRATION NOTED AT THIS TIME. PT HAS F/C DRAINING WELL TO GRAVITY, PT IS NOTED WITH MULTIPLE SKIN ISSUES, ALL NEEDS MET AT THIS TIME, ALL SAFETY MEASURES IN PLACE AT ALL TIMES, CALL LIGHT WITHIN EASY REACH, WILL MONITOR PT CLOSELY FOR CHANGES
[2016-11-12] MEDS: IV NS 0.9% 1,000 ML IV PRN ×2 (08:02→19:37)
[2016-11-12] MEDS: DAKINS QUARTER STRENGTH (0.125%) 480 ML BOTTLE TOP SCH (08:02)
[2016-11-12] MEDS: HYDROGEL DRESSING 90 GM TUBE TP SCH (08:03)
[2016-11-12] MEDS: Z GUARD REMEDY 2 OZ OINT TP PRN (08:03)
--- NOTE | 2016-11-12 08:29 | NUR ---
ICU NOTES PT HR 99, RESTLESS, WAS GIVEN MORPHINE PRN
--- NOTE | 2016-11-12 09:00 | NUR ---
ICU NOTES CENTRAL LINE DRESSING COMPLETED, KOLB BAG CHANGES, LEVO SET @ 6MCG/MIN
--- NOTE | 2016-11-12 09:36 | NUR ---
ICU NOTES LEVO DECREASED @4 MCG/MIN, WILL TITRATE TO KEEP SBP ABOVE 90
[2016-11-12] MEDS: NOREPINEPHRINE 16 MG in IV D5W 500 ML IV PRN ×2 (10:39→13:23)
[2016-11-12] MEDS: ACETAMINOPHEN 650 MG/20.3 ML UDC GT PRN (11:17)
--- NOTE | 2016-11-12 11:22 | NUR ---
ICU TEMP NOTES PT HAS 100.2 TEMPERATURE, TYLENOL GIVEN, COOLING MEASURES IN PLACE
[2016-11-12] MEDS ORDERED: IV NS 0.9% 500 ML IV ONE (11:27)
[2016-11-12] MEDS ORDERED: SECONDARY IV SET 1 EA INFUS.SET MC ONE (13:14)
[2016-11-12] MEDS: NUTREN PULMONARY 1,000 ML BAG GT PRN (16:22)
--- NOTE | 2016-11-12 18:34 | NUR ---
LAND COMMISSIONER CLOSING NOTES PT REMAINED STABLE DURING SHIFT, ALL MEDICATIONS GIVEN, ALL MD ORDERS CARRIED OUT, IV INTACT/PATENT, RUNNING LEVO AND NS ORDERED, F/C DRAINING TO GRAVITY, PT TURNED AND REPOSITIONED, PT KEPT CLEAN AND DRY, ALL TREATMENTS CARRIED OUT, ALL SAFETY MEASURES IN PLACE AT ALL TIMES, CALL LIGHT WITHIN EASY REACH, REPORT WILL BE GIVEN TO PM RN FOR MADI
--- NOTE | 2016-11-12 20:00 | NUR ---
NARROW GAUGE BRAKEMAN - NOTES - RECEIVED PT IN BED, A/O X1, OPENS EYES TO TACTILE STIMULI, DOES NOT FOLLOW COMMANDS, PT IS ON MONITOR SHOWING SR 90'S, PT IS ON MECH VENT, SHILEY #8 AC 20 TV 550 FIO2 60% PEEP 5, NO S/S OF RESP.DISTRESS OR SOB NOTED AT THIS TIME, PT HAS PEG TUBE, INTACT/PATENT, RUNNING NUTREN @ 60ML/HR, TOLERATING WELL, NO RESIDUALS NOTED AT THIS TIME, PT HAS DAVIAN PICC, RUNNING LEVO @ 6 MCG/MIN, NS @ 100ML/HR, C/D/I/PATENT, FLUSHING WELL, NO S/S OF INFECTION/ INFILTRATION NOTED AT THIS TIME. PT HAS F/C DRAINING WELL TO GRAVITY, PT IS NOTED WITH STAGE 4 WOUND ON SACRUM AND MULTIPLE SKIN ISSUES, ALL NEEDS MET AT THIS TIME, ALL SAFETY MEASURES IN PLACE AT ALL TIMES, WILL MONITOR PT CLOSELY FOR CHANGES
[2016-11-13] VITALS (110 sets, daily range): BP systolic 60–127; BP diastolic 35–80
[2016-11-13] MEDS: IPRATROPIUM NEB FS 0.5 MG/2.5 ML AMPUL.NEB NEB SCH ×4 (01:57→20:09)
[2016-11-13] MEDS: ALBUTEROL HALF STRENGTH 1.25 MG/3 ML VIAL.NEB NEB SCH ×4 (01:59→20:09)
[2016-11-13] MEDS: LORAZEPAM INJ 2 MG/ML VIAL IV PRN ×3 (02:43→20:26)
[2016-11-13] MEDS: VANCOMYCIN 0.75 GM in IV D5W 250 ML IV SCH ×2 (03:37→16:16)
[2016-11-13] MEDS: MEROPENEM 1 G in IV NS 0.9% 100 ML IV SCH ×3 (04:42→20:26)
[2016-11-13 05:09] LABS: BASOPHILS % (AUTO) 0.1 % (0.0-2.0); EOSINOPHILS # (AUTO) 0.2 /CMM (0.0-0.7); EOSINOPHILS % (AUTO) 1.7 % (0.0-6.0); HEMATOCRIT 26 % (39-51); HEMOGLOBIN 8.2 g/dL (13.5-17.5); LYMPHOCYTES # (AUTO) 0.8 /CMM (0.8-4.8); LYMPHOCYTES % (AUTO) 5.6 % (20.0-44.0); MEAN CORPUSCULAR HEMOGLOBIN 28 PG (26.0-33.0); MEAN CORPUSCULAR HGB CONC 32 g/dl (31.0-36.0); MEAN CORPUSCULAR VOLUME 88 fL (80-96); MONOCYTES % (AUTO) 6.7 % (2.0-12.0); NEUTROPHILS # (AUTO) 12.6 /CMM (1.8-8.9); NEUTROPHILS % (AUTO) 85.9 % (43.0-81.0); PLATELET COUNT (AUTO) 361 /CMM (150-450); RDW COEFFICIENT OF VARIATION 15.8 (11.5-15.0); RED BLOOD CELL COUNT(AUTO) 2.91 MIL/uL (4.5-6.0); WHITE BLOOD COUNT (AUTO) 14.7 K/uL (4.3-11.0)
[2016-11-13 05:22] LABS: CALCIUM, SERUM 7.5 mg/dL (8.5-10.1); CREATININE 0.3 mg/dL (0.6-1.3); MAGNESIUM 1.7 mg/dL (1.8-2.4); PHOSPHORUS 1.9 mg/dL (2.5-4.9); POTASSIUM 3.6 mmol/L (3.5-5.1)
[2016-11-13] MEDS: MORPHINE SULFATE INJ 2 MG/ML DISP.SYRIN IV PRN ×4 (06:05→20:43)
[2016-11-13] MEDS: IV NS 0.9% 1,000 ML IV PRN ×2 (06:27→16:18)
--- NOTE | 2016-11-13 07:05 | NUR ---
RN INITIAL NOTES RECEIVED PT ASLEEP, OPENS EYES ON VERBAL AND TACTILE STIMULI. NON-VERBAL. TRACH IN PLACE. ON MECH VENT. HOB ELEVATED. NO RESPIRATORY DISTRESS NOTED. NO SIGNS OF PAIN NOTED. DAVIAN PICC LINE IN PLACE. ON NS AT 100ML/HR. ON LEVO AT 2MCG/MIN. WILL CLOSELY MONITOR BP. GT IN PLACE. TOLERATING GTF WELL. NO RESIDUAL NOTED. FC IN PLACE. NO SEDIMENTS NOR HEMATURIA NOTED. BLE ELEVATED. WILL CONTINUE TO MONITOR.
[2016-11-13] MEDS: DAKINS QUARTER STRENGTH (0.125%) 480 ML BOTTLE TOP SCH (08:15)
[2016-11-13] MEDS: HYDROGEL DRESSING 90 GM TUBE TP SCH (08:15)
[2016-11-13] MEDS: ACETAMINOPHEN 650 MG/20.3 ML UDC GT PRN ×2 (08:30→22:58)
--- NOTE | 2016-11-13 08:30 | NUR ---
RN NOTES SEEN AND EXAMINED BY DR. BHATTI. TRACH IN PLACE, TOLERATING VENT WELL. NO RESPIRATORY DISTRESS NOTED. MD AWARE THAT PT IS ON LEVO AT 12MCG/MIN, BP CLOSELY MONITORED. MD ORDERED TO REMOVE PEEP AND ABG AFTER 1HR. NOTED AND CARRIED OUT. WILL CONTINUE TO MONITOR.
[2016-11-13] MEDS ORDERED: SECONDARY IV SET 1 EA INFUS.SET MC ONE (11:22)
[2016-11-13] MEDS: Magnesium 1GM/D5W 100ML PREMIX 100 ML IV SCH ×2 (11:26→12:26)
[2016-11-13] MEDS: NOREPINEPHRINE 16 MG in IV D5W 500 ML IV PRN ×2 (12:27→17:39)
[2016-11-13] MEDS: NUTREN PULMONARY 1,000 ML BAG GT PRN (13:46)
[2016-11-13] MEDS ORDERED: K PHOS NEUTRAL 250 MG TABLET PO ONE (15:30)
[2016-11-13] MEDS ORDERED: NEUTRA PHOS 1 POWD.PACKET NG ONE (15:30)
--- NOTE | 2016-11-13 16:30 | NUR ---
RN NOTES DR. BHATTI IN THE UNIT. NOTIFIED THAT PT'S 02 SAT BET 85-88%. ON MECH VENT, SETTINGS FOLLOWS: AC20, TV 550, FI02 70%, PEEP 0. PT SUCTIONED AND KEPT HOB ELEVATED. MD ORDERED PUT PEEP +5 AND TITRATE FI02 ACCORDINGLY. NOTED AND CARRIED OUT. WILL CONTINUE TO MONITOR.
--- NOTE | 2016-11-13 18:52 | NUR ---
RN CLOSING NOTES PT REMAINS ON MECH VENT. TRACH IN PLACE. SUCTIONED Q2 AND PRN. KEPT HOB ELEVATED. PICC LINE IN PLACE. TOLERATING IVF WELL. STILL ON LEVO, TITRATED ACCORDINGLY. FC IN PLACE. ADEQUATE OUTPUT NOTED. TX PROVIDED ORDERED. KEPT CLEAN AND DRY. REPOSITIONED Q2. KEPT BLE ELEVATED. PT COMFORTABLE. WILL ENDORSE FOR CONTINUITY OF CARE.
--- NOTE | 2016-11-13 20:00 | NUR ---
CONTACT PRINTER DRY FILM - NOTES - RECEIVED PT IN BED, RESTLESS, IN RESP DISTRESS, RR 40S, DOES NOT FOLLOW COMMANDS, PT IS ON MONITOR SHOWING SR 120-130'S, PT IS ON MECH VENT, SHILEY #8 AC 20 TV 550 FIO2 100% PEEP 5. PT HAS PEG TUBE, INTACT/PATENT, RUNNING NUTREN @ 60ML/HR, TOLERATING WELL, NO RESIDUALS NOTED AT THIS TIME, PT HAS DAVIAN PICC, RUNNING LEVO @ 8 MCG/MIN, NS @ 100ML/HR, C/D/I/PATENT, FLUSHING WELL, NO S/S OF INFECTION/ INFILTRATION NOTED AT THIS TIME. PT HAS F/C DRAINING WELL TO GRAVITY, PT IS NOTED WITH STAGE 4 WOUND ON SACRUM AND MULTIPLE SKIN ISSUES, ALL NEEDS MET AT THIS TIME, ALL SAFETY MEASURES IN PLACE AT ALL TIMES, WILL MONITOR PT CLOSELY FOR CHANGES
[2016-11-13] MEDS ORDERED: LORAZEPAM INJ 2 MG/ML VIAL ONE (21:06)
[2016-11-13 21:27] LABS: ABG BASE EXCESS 17.5 mmol/L; ABG OXYGEN SATURATION 89.5 % (92.0-98.5); ABG PCO2 61.3 mmHg (35.0-45.0); ABG PH 7.469 (7.350-7.450); ABG PO2 59.4 mmHg (75.0-100.0); ABG TOTAL HEMOGLOBIN 9.4 G/dL (13.5-18.0); COHb 1.1 % (0.5-1.5); O2Hb 87.6 % (94.0-97.0); SITE, ABG Right Radial; VT, ABG 550 mL
[2016-11-13] MEDS ORDERED: LORAZEPAM INJ 2 MG/ML VIAL IV ONE (21:30)
--- NOTE | 2016-11-13 21:30 | NUR ---
PT IN RESPIRATORY DISTRESS, BREATHING RR 40S, HR 140S, O2SAT 85-88%, MD DOWD NOTIFIED, ORDERED 1 MG ATIVAN TO REDUCE RESP DISTRESS, ORDERS CARRIED OUT, PT MADE COMFORTABLE, WILL MONITOR VITAL SIGNS AND PT STATUS
[2016-11-14] VITALS (62 sets, daily range): BP systolic 52–121; BP diastolic 31–84
[2016-11-14] MEDS: LORAZEPAM INJ 2 MG/ML VIAL IV PRN ×2 (00:42→05:04)
[2016-11-14] MEDS: ALBUTEROL HALF STRENGTH 1.25 MG/3 ML VIAL.NEB NEB SCH ×3 (01:31→13:13)
[2016-11-14] MEDS: IPRATROPIUM NEB FS 0.5 MG/2.5 ML AMPUL.NEB NEB SCH ×3 (01:31→13:13)
[2016-11-14] MEDS: VANCOMYCIN 0.75 GM in IV D5W 250 ML IV SCH (03:57)
[2016-11-14] MEDS: IV NS 0.9% 1,000 ML IV PRN (03:58)
[2016-11-14] MEDS: MORPHINE SULFATE INJ 2 MG/ML DISP.SYRIN IV PRN ×2 (03:58→08:11)
[2016-11-14] MEDS: MEROPENEM 1 G in IV NS 0.9% 100 ML IV SCH (05:04)
[2016-11-14 05:15] LABS: CALCIUM, SERUM 7.5 mg/dL (8.5-10.1); CREATININE 0.4 mg/dL (0.6-1.3); MAGNESIUM 2.1 mg/dL (1.8-2.4); PHOSPHORUS 2.7 mg/dL (2.5-4.9); POTASSIUM 4.4 mmol/L (3.5-5.1)
[2016-11-14] MEDS: NUTREN PULMONARY 1,000 ML BAG GT PRN (06:31)
--- NOTE | 2016-11-14 07:56 | NUR ---
RT PATIENT REC'D TRACHED ON [facility] VENT WITH SETTINGS SET BY MD CARTER HUFF. VENT ALARMS CHECKED + AUDIBLE. PT SUCTIONED WITH SMALL AMT PALE SEMITHICK SECRETIONS. B/S DIM COARSE. BILAT CHEST RISE NOTED. AMBU BAG AT HOB. CONT CURRENT PLAN OF RESP CARE. Addendum: 11/14/16 at 0756 by BRYCE SWAN RT Amended: Links added.
[2016-11-14] MEDS: HYDROGEL DRESSING 90 GM TUBE TP SCH (08:12)
[2016-11-14] MEDS: DAKINS QUARTER STRENGTH (0.125%) 480 ML BOTTLE TOP SCH (08:12)
[2016-11-14] MEDS ORDERED: PROPOFOL 100 ML IV PRN (09:00)
[2016-11-14] MEDS ORDERED: IV SET PRIMARY PUMP SET 1 EA INFUS.SET MC ONE (09:40)
[2016-11-14 10:02] LABS: ABG BASE EXCESS 17.8 mmol/L; ABG PCO2 81.2 mmHg (35.0-45.0); ABG PH 7.372 (7.350-7.450); ABG TOTAL HEMOGLOBIN 9.9 G/dL (13.5-18.0); AaDO2 574.8 mmHg; MetHb 1.2 % (0.0-1.5); O2Hb 85.1 % (94.0-97.0); SITE, ABG Left Radial
--- NOTE | 2016-11-14 10:09 | NUR ---
PER DR BHATTI PATIENT PLACED ON PRESSURE CONTROL VENTILATION WITH ORDERED SETTINGS. Addendum: 11/14/16 at 1009 by BRYCE SWAN RT Amended: Links added.
[2016-11-14] MEDS ORDERED: COLISTIMETHATE SODIUM 150 MG in IV NS 0.9% 50 ML IV SCH (11:30)
[2016-11-14] MEDS: NOREPINEPHRINE 16 MG in IV D5W 500 ML IV PRN (12:17)
[2016-11-14] MEDS: methylPREDNISolone SOD SUCC 125 MG/2ML VIAL IV SCH ×2 (12:20→12:21)
[2016-11-14 12:48] LABS: BASOPHILS % (AUTO) 0.1 % (0.0-2.0); HEMATOCRIT 27 % (39-51); HEMOGLOBIN 8.6 g/dL (13.5-17.5); LYMPHOCYTES % (AUTO) 4.8 % (20.0-44.0); MEAN CORPUSCULAR HEMOGLOBIN 28 PG (26.0-33.0); MEAN CORPUSCULAR HGB CONC 32 g/dl (31.0-36.0); MEAN CORPUSCULAR VOLUME 88 fL (80-96); MONOCYTES # (AUTO) 0.5 /CMM (0.1-1.30); MONOCYTES % (AUTO) 2.2 % (2.0-12.0); NEUTROPHILS % (AUTO) 92.9 % (43.0-81.0); PLATELET COUNT (AUTO) 408 /CMM (150-450); RDW COEFFICIENT OF VARIATION 15.9 (11.5-15.0); RED BLOOD CELL COUNT(AUTO) 3.07 MIL/uL (4.5-6.0); WHITE BLOOD COUNT (AUTO) 21.5 K/uL (4.3-11.0)
--- NOTE | 2016-11-14 14:00 | NUR ---
Noted decline in patient's blood pressure, norepinephine at the max rate, heart rate also decreasing, primary doctor Mar aware of same.
--- NOTE | 2016-11-14 15:10 | NUR ---
Called patient's daughter Jacki per number on facesheet to update regarding current status, patient passed during attempts to speak with daughter and attempts to call the patient's brother. Whille attempting to call back after disconnected call, the patient's daughter calls the hospital and was informed to the patient's subsequent passing. Daughter very tearfully, call disconnected will call daughter back after some time.
== END 2016-11-14 14:55 | disposition expired | DRG 720 ==
LOC: ER 19:01 → ICU 21:15 → TELE-TD 11-05 00:48 → TELE1 11-05 00:57 → TELE-TD 11-09 13:44 → TELE1 11-10 13:34 → ICU 11-10 19:40
PROVIDERS: ADMIT Nurse Practitioner Acute Care; ATTEND Nurse Practitioner Acute Care
DX: A41.9 Sepsis, unspecified organism (principal); J96.21 Acute and chronic respiratory failure with hypoxia; E43 Unspecified severe protein-calorie malnutrition; J18.9 Pneumonia, unspecified organism; R65.21 Severe sepsis with septic shock; Z99.11 Dependence on respirator [ventilator] status; E87.3 Alkalosis; L89.159 Pressure ulcer of sacral region, unspecified stage; R53.2 Functional quadriplegia; F03.90 Unspecified dementia, unspecified severity, without behavioral disturbance, psychotic disturbance, mood disturbance, and anxiety; J98.4 Other disorders of lung; Z93.0 Tracheostomy status; J96.22 Acute and chronic respiratory failure with hypercapnia; N39.0 Urinary tract infection, site not specified; D62 Acute posthemorrhagic anemia; Z93.1 Gastrostomy status; R13.10 Dysphagia, unspecified; I12.9 Hypertensive chronic kidney disease with stage 1 through stage 4 chronic kidney disease, or unspecified chronic kidney disease; N18.9 Chronic kidney disease, unspecified; Z87.891 Personal history of nicotine dependence; Z68.1 Body mass index [BMI] 19.9 or less, adult; E87.1 Hypo-osmolality and hyponatremia; D75.89 Other specified diseases of blood and blood-forming organs; F41.9 Anxiety disorder, unspecified; I51.7 Cardiomegaly; J84.112 Idiopathic pulmonary fibrosis; Z66 Do not resuscitate; J44.0 Chronic obstructive pulmonary disease with (acute) lower respiratory infection; J44.9 Chronic obstructive pulmonary disease, unspecified
CPT/HCPCS: 31720; 36415; 36569; 36600; 71010-TC; 80048-TC; 80053-TC; 80061-TC; 80076-TC; 80202-TC; 81000-TC; 82272-TC; 82306; 82378; 82533; 82595; 82728-TC; 82746; 82784; 82803-TC; 83540-TC; 83605-TC; 83615-TC; 83735-TC; 84100-TC; 84155; 84165; 84443-TC; 84484-TC; 84550-TC; 85025-TC; 85045-TC; 85652-TC; 85730-TC; 86850-TC; 86921-TC; 87040-TC; 87081-TC; 87086-TC; 87186-TC; 88305-TC; 88312-TC; 93307-TC; 94002-TC; 94003-TC; 94760-TC; 99082-TC; A4216; A4217; A4606; A4623; A6248; A6253; A6402; A6403; A7526; C1751; C9113; J0696; J0770; J2060; J2185; J2270; J2704; J2930; J3010; J3370; J3475; J3480; J3490; J7030; J7040; J7050; J7060; P9016-BL; Z7610